=== PATIENT | male | born 1985 | race Caucasian/White ===

== ENCOUNTER 2020-05-13 14:09 | Outpatient (REF) | payer OTHER, SELFPAY | END 2020-05-13 14:10 | disposition home or self-care (01) | LOC: HO.LNP 14:09 | PROVIDERS: Visit Provider Nurse Practitioner Family | DX: Z20.828 Contact with and (suspected) exposure to other viral communicable diseases (principal) | CPT/HCPCS: U0003 ==

== ENCOUNTER 2020-08-04 11:39 | Outpatient (REF) | payer OTHER, SELFPAY | END 2020-08-04 11:40 | disposition home or self-care (01) | LOC: HO.LAB 11:39 | PROVIDERS: Visit Provider Nurse Practitioner Family | DX: L02.91 Cutaneous abscess, unspecified (principal) | CPT/HCPCS: 87071; 87205 ==

== ENCOUNTER 2021-04-07 18:39 | Outpatient (REF) | payer OTHER, SELFPAY | END 2021-04-07 18:40 | disposition home or self-care (01) | LOC: HO.LNP 18:39 | PROVIDERS: Visit Provider Nurse Practitioner Family | DX: Z20.822 Contact with and (suspected) exposure to COVID-19 (principal) | CPT/HCPCS: U0003; U0005 ==

== ENCOUNTER 2021-06-08 10:00 | Outpatient (REF) | payer OTHER, SELFPAY | END 2021-06-08 10:01 | disposition home or self-care (01) | LOC: HO.HMGCLDS 10:00 | PROVIDERS: PCP Nurse Practitioner Family; Visit Provider Internal Medicine | DX: Z20.822 Contact with and (suspected) exposure to COVID-19 (principal) | CPT/HCPCS: C9803; U0003; U0005 ==

== ENCOUNTER 2023-02-20 10:39 | Outpatient (AMB) | payer OTHER, SELFPAY ==
[2023-02-20 12:55] VITALS: BP 102/64; PULSE 50; TEMP 36.2; O2SAT 98; BMI 22.6
--- NOTE | 2023-02-20 12:55 | AM.OFFWIN_ITS ---
Intake Vital Signs 02/20/23 12:55 Height 6 ft Weight 167 lb BMI 22.6 BP 102/64 Blood Pressure Location Lt brachial Position Sitting Pulse 50 Pulse Source Pulse Oximeter Temp 97.2 F Temp Source Temporal Artery Scan Pulse Oximetry (%) 98 Oxygen Delivery Method Room Air Intake Visit Reasons: EP, Right eye scratched cornea Intake Note: Pt is here c/o having a scratch in his right eye since yesterday. Patient Tobacco Use Status: Current everyday Tobacco user Allergies Cephalosporins [CEPHALOSPORINS] Allergy (Unknown, Verified 02/20/23 13:11) ANAPHYLACTIC REACTION Penicillins [PENICILLINS] Allergy (Unknown, Verified 02/20/23 13:11) ANAPHYLAXIS bupropion [From Wellbutrin SR] Adverse Reaction (Severe, Verified 02/20/23 13:11) Agitated Cephalosporin Allergy (Unknown, Uncoded 02/20/23 13:11) Anaphylaxis Penicillin Allergy (Unknown, Uncoded 02/20/23 13:11) Anaphylaxis Medication List - Last Reconciled 02/20/23 by Luis Daniel Lema MD No Known Home Meds Do you need a note to return to daycare/school/sports/work: Yes HPI EP, Right eye scratched cornea HPI Details 37-year-old male presents to the office for a sick visit. Patient while removing his contact lens yesterday felt irritation in the right eye. The eye has been red and teary since. [facility] Family History Other Substance use disorder Social History [facility]: [facility] Patient Tobacco Use Status: Current everyday Tobacco user Tobacco use type: Cigarette Cigarette Packs Per Day: 1 Years Smoked: 15 years e-Cigarette/Vaping Use: Never Used Second Hand Smoke Exposure: No Current occupational status: employed Physical Exam Vital Signs: Last Vital Signs Temp 97.2 F 02/20/23 12:55 Pulse 50 02/20/23 12:55 BP 102/64 02/20/23 12:55 Pulse Ox 98 02/20/23 12:55 Oxygen Delivery Method Room Air 02/20/23 12:55 BMI result Body Mass Index 22.6 Eyes Other: Right eye: Conjunctival congestion. Corneas clear. Anterior chambers clear. No fluoro uptake. Assessment & Plan Assessment & Plan (1) Corneal abrasion due to contact lens: Code(s): H18.829 - Corneal disorder due to contact lens, unspecified eye Plan: Erythromycin ophthalmic ointment prescribed. To take the medication twice a day. If symptoms do not improve to follow-up here. Coding Level of Care Code Est Pt Level 3 (23734) Diagnoses Corneal abrasion due to contact lens H18.829
== END 2023-02-20 13:02 | disposition home or self-care (01) ==
PROVIDERS: PCP Nurse Practitioner Family; Visit Provider Internal Medicine
DX: H18.829 Corneal disorder due to contact lens, unspecified eye (principal)
CPT/HCPCS: 99213

== ENCOUNTER 2023-04-04 08:03 | Outpatient (AMB) | payer OTHER, SELFPAY ==
[2023-04-04 08:04] VITALS: BP 122/68; PULSE 67; TEMP 36.6; O2SAT 98; BMI 22.6
--- NOTE | 2023-04-04 08:04 | MHC.OFFWIV ---
Intake Vital Signs 04/04/23 08:04 Height 6 ft Weight 75.75 kg BMI 22.6 BP 122/68 Blood Pressure Location Rt brachial Position Sitting Pulse 67 Pulse Source Pulse Oximeter Temp 97.8 F Temp Source Temporal Artery Scan Pulse Oximetry (%) 98 Intake Visit Reasons: EP Back pain Intake Note: pt is here for WC back injury Patient Tobacco Use Status: Current everyday Tobacco user Allergies Cephalosporins [CEPHALOSPORINS] Allergy (Unknown, Verified 04/04/23 08:04) ANAPHYLACTIC REACTION Penicillins [PENICILLINS] Allergy (Unknown, Verified 04/04/23 08:04) ANAPHYLAXIS bupropion [From Wellbutrin SR] Adverse Reaction (Severe, Verified 04/04/23 08:04) Agitated Cephalosporin Allergy (Unknown, Uncoded 02/20/23 13:11) Anaphylaxis Penicillin Allergy (Unknown, Uncoded 02/20/23 13:11) Anaphylaxis Do you need a note to return to daycare/school/sports/work: Yes HPI HPI Comments History of Present Illness Details 0808 This is a 29-year-old male presenting to the clinic for complaints of work related injury, of mid back pain s/p heavy lifting ( 20 lbs box of books) yesterday, worse with movement better at rest. Reports he has had pain like this in the past but it usually goes away after sleeping. Works at a factory. Denies numbness, tingling, fevers, chills, headache vision changes, dizziness, weakness, chest pain and shortness of breath. PE w/ TTP to L4-L6 paraspinous muscles b/l w/ some discomfort over the midline. Reports pain w/ internal and external rotation of back. Normal hand crusher wet ground mica b/l. Ambulatory w/o difficlty. Non toxic apearing History and physical exam supporting musculoskeletal cause such as msk pain, paraspinous muscle spasms versus herniated disc. Unlikely cord compression, cauda equina, epidural abscess, myelopathy Plan at this time naproxen, prednisone, Lidoderm patch, cyclobenzaprine. Advised to follow up with Work connection. Educated patient on diagnosis and treatment plan, answered all question, patient verbalizes understanding. At this time patient will be discharged home, advised to return with new or worsening symptoms. Educated on worrisome signs and symptoms and when to return. At this time I feel comfortable discharge home. [facility] Family History Other Substance use disorder Social History Housing: [facility] Patient Tobacco Use Status: Current everyday Tobacco user Tobacco use type: Cigarette Cigarette Packs Per Day: 1 Years Smoked: 15 years e-Cigarette/Vaping Use: Never Used Second Hand Smoke Exposure: No Current occupational status: employed Review of Systems Const Details: Constitutional : No Weight loss, No Fever, No Chills, ENT/Mouth : No Hearing loss, No Ear Pain, No Nasal Congestion, No Sinus Pain, No Hoarseness, No sore throat, No Rhinorrhea, No Swallowing Difficulty Cardiovascular : No Chest Pain, No SOB Respiratory : No Cough, No Dyspnea Gastrointestinal : No Nausea, No Vomiting, No Diarrhea, No abdominal Pain, No Hematochezia, No Melena Genitourinary : No Dysuria, No Urinary Frequency, No Hematuria, No Urinary Incontinence, Musculoskeletal : positive back pain Skin : No Skin Lesions, No rash Neuro : No Weakness, No Numbness, No Paresthesias, no loss of bowel or bladder incontinence, no saddle anesthesia All systems reviewed & are unremarkable except as noted in HPI and below Physical Exam Vital Signs: Last Vital Signs Temp 97.8 F 04/04/23 08:04 Pulse 67 04/04/23 08:04 BP 122/68 04/04/23 08:04 Pulse Ox 98 04/04/23 08:04 BMI result Body Mass Index 22.6 Vital signs stable Appearance: Alert.? Oriented X3.? No acute distress.? Head: Normocephalic, atraumatic, no step-offs or deformities Eyes: Pupils equal, round and reactive to light.? CVS: Normal heart rate and rhythm.? Pulses normal.? Respiratory: No respiratory distress.? Breath sounds normal.? Abdomen: Soft and nontender.? Skin: Skin warm and dry.? Normal skin color.? Normal skin turgor.? Extremities: No lower extremity edema.? No calf ttp. 5/5 strength to bilateral upper and lower extremities Back: TTP to L4-L6 paraspinous muscles b/l w/ some discomfort over the midline. Reports pain w/ internal and external rotation of back. Normal hand crusher wet ground mica b/l. Ambulatory w/o difficlty. Non toxic apearing , no C-spine tenderness, full range of motion, no CVA tenderness bilaterally Neuro: Oriented X 3.? No motor deficit.? No sensory deficit. CN 2-12 intact . Ambulating with steady gait normal coordination. No saddle paresthesias. Assessment & Plan Assessment & Plan (1) Spasm of thoracic back muscle: Code(s): M62.830 - Muscle spasm of back Plan Take your medications as prescribed. If you were prescribed antibiotics today, it is important that you take your medication to their entirety, do not skip any doses, do not finish them early. Follow-up with your primary care provider this week. Follow-up with the were connection Return to the emergency department with new or worsening symptoms. Such as fevers, chills, chest pain, shortness of breath, nausea, vomiting, dizziness, headache, vision changes, lethargy In case of emergency call 911 Medications: New prednisone 20 mg PO DAILY 5 days 5 tabs 0RF cyclobenzaprine 10 mg PO BEDTIME PRN 14 tabs 0RF muscle spasm lidocaine 4% (AsperFlex (lidocaine)) 1 patch topical DAILY PRN 15 ea 0RF pain naproxen 500 mg PO BID PRN 14 tabs 0RF pain Coding Level of Care Code Est Pt Level 3 (08542) Diagnoses Spasm of thoracic back muscle M62.830
== END 2023-04-04 08:43 | disposition home or self-care (01) ==
PROVIDERS: PCP Nurse Practitioner Family; Visit Provider Physician Assistant
DX: M62.830 Muscle spasm of back (principal)
CPT/HCPCS: 99213

== ENCOUNTER 2023-06-05 08:08 | Outpatient (AMB) | payer OTHER, SELFPAY ==
[2023-06-05 08:31] VITALS: BP 102/64; PULSE 76; TEMP 36.6; O2SAT 98; BMI 22.6
--- NOTE | 2023-06-05 08:31 | AM.OFFWIN_ITS ---
Intake Vital Signs 06/05/23 08:31 Height 6 ft Weight 167 lb BMI 22.6 BP 102/64 Blood Pressure Location Lt brachial Position Sitting Pulse 76 Pulse Source Pulse Oximeter Temp 97.8 F Temp Source Temporal Artery Scan Pulse Oximetry (%) 98 Intake Visit Reasons: EST/right side lefg pain (lobby) Intake Note: pt is here for c/o right side leg pain, left side thigh numbness Patient Tobacco Use Status: Current everyday Tobacco user Allergies Cephalosporins [CEPHALOSPORINS] Allergy (Unknown, Verified 06/05/23 08:32) ANAPHYLACTIC REACTION Penicillins [PENICILLINS] Allergy (Unknown, Verified 06/05/23 08:32) ANAPHYLAXIS bupropion [From Wellbutrin SR] Adverse Reaction (Severe, Verified 06/05/23 08:32) Agitated Cephalosporin Allergy (Unknown, Uncoded 02/20/23 13:11) Anaphylaxis Penicillin Allergy (Unknown, Uncoded 02/20/23 13:11) Anaphylaxis Do you need a note to return to daycare/school/sports/work: Yes HPI EST/right side lefg pain (lobby) HPI Details Patient presents to the office for a sick visit. Complaining of lower back pain for the past week. No history of fall or trauma prior to the onset of symptoms. No urinary incontinence. No fevers or chills. Pain is worse on bending forwards or sideways. Relieve done sitting down. Pain is radiating into the gluteal area. [facility] Family History Other Substance use disorder Housing: Condominium Patient Tobacco Use Status: Current everyday Tobacco user Tobacco use type: Cigarette Cigarette Packs Per Day: 1 Years Smoked: 15 years e-Cigarette/Vaping Use: Never Used Second Hand Smoke Exposure: No Current occupational status: employed Physical Exam Vital Signs: Last Vital Signs Temp 97.8 F 06/05/23 08:31 Pulse 76 06/05/23 08:31 BP 102/64 06/05/23 08:31 Pulse Ox 98 06/05/23 08:31 BMI result Body Mass Index 22.6 Extrem Other: Right hip: Pain on raising the right leg. Internal and external rotation is painful. Assessment & Plan Assessment & Plan (1) Right hip pain: Code(s): M25.551 - Pain in right hip Plan: Muscular in etiology. X-rays have been ordered. No x-rays are available today. Patient was advised to go to the hospital or come back later in the afternoon to get the x-ray done. Muscle relaxant and anti-inflammatory called in. Orders: Orders XR hip RT w PEL1V Today M25.551 - Pain in right hip Coding Level of Care Code Est Pt Level 4 (45174) Diagnoses Right hip pain M25.551
== END 2023-06-05 09:14 | disposition home or self-care (01) ==
PROVIDERS: PCP Nurse Practitioner Family; Visit Provider Internal Medicine
DX: M25.551 Pain in right hip (principal)
CPT/HCPCS: 99214

== ENCOUNTER 2023-06-05 10:56 | Outpatient (REF) | payer OTHER, SELFPAY ==
--- NOTE | ~2023-06-05 | XR_ITS ---
EXAMINATION: XR HIP, RIGHT CLINICAL INFORMATION: Pain in right hip. COMPARISON: None available. TECHNIQUE: AP view of the pelvis as well as AP and frog lateral views of the right hip. FINDINGS: Degenerative changes with sclerosis in the bilateral sacroiliac joints, right greater than left. Possible transitional anatomy difficult to characterize due to overlying bowel. Multiple rounded pelvic calcifications are likely vascular. Mild degenerative changes in the right hip with joint space narrowing and hypertrophic change. XR/XR hip RT w PEL1V IMPRESSION: 1. Abnormality along the intertrochanteric region of the right femur is of indeterminate age and etiology. Recommend additional imaging with CT scan for further evaluation, particularly if there is concern for fracture or underlying pathology. 2. Mild degenerative changes in the right hip. Additional imaging with CT scan should be considered for better visualization as CT scan is much more sensitive for detection of fracture or other underlying pathology. 3. Asymmetric advanced degenerative changes in the right sacroiliac joint could be further evaluated with dedicated images. This study was presented today June 05, 2023 at 12:58 PM for interpretation. Stat results provided at this time as requested by referring provider.
== END 2023-06-05 10:57 | disposition home or self-care (01) ==
LOC: HO.HMGCX 10:56
PROVIDERS: PCP Nurse Practitioner Family; Visit Provider Internal Medicine
DX: M25.551 Pain in right hip (principal)
CPT/HCPCS: 73502

== ENCOUNTER 2023-07-19 08:32 | Outpatient (AMB) | payer OTHER, SELFPAY ==
--- NOTE | 2023-07-19 09:09 | MHC.OFFWIV ---
Intake Vital Signs 07/19/23 09:10 Height 6 ft Weight 168 lb BMI 22.8 BP 110/60 Blood Pressure Location Rt brachial Position Sitting Pulse 66 Pulse Source Pulse Oximeter Temp 97.9 F Temp Source Temporal Artery Scan Pulse Oximetry (%) 96 Oxygen Delivery Method Room Air Intake Visit Reasons: EST/left knee pain (lobby masked) Intake Note: Pt is here c/o left knee pain. Pt states his three year dove head first into his knee cap and he now has discomfort. Patient Tobacco Use Status: Current everyday Tobacco user Allergies Cephalosporins [CEPHALOSPORINS] Allergy (Unknown, Verified 07/19/23 09:12) ANAPHYLACTIC REACTION Penicillins [PENICILLINS] Allergy (Unknown, Verified 07/19/23 09:12) ANAPHYLAXIS bupropion [From Wellbutrin SR] Adverse Reaction (Severe, Verified 07/19/23 09:12) Agitated Cephalosporin Allergy (Unknown, Uncoded 07/19/23 09:12) Anaphylaxis Penicillin Allergy (Unknown, Uncoded 07/19/23 09:12) Anaphylaxis Do you need a note to return to daycare/school/sports/work: Yes HPI HPI Comments History of Present Illness Details He presents to office with L knee pain Last night his 3 year old ran into his L knee He has pain wih movement/walking Feels sharp pain below kneecap No surgeries in past He took nothing He said knees pain sitting is 0/10 but walking 7/10 sharp No giving out PFSH Family History Other Substance use disorder Social History Housing: Condominium Patient Tobacco Use Status: Current everyday Tobacco user Tobacco use type: Cigarette Cigarette Packs Per Day: 1 Years Smoked: 15 years e-Cigarette/Vaping Use: Never Used Second Hand Smoke Exposure: No Current occupational status: employed Review of Systems Musc Reports abnormal gait, Denies deformity, Reports arthralgias, Reports joint swelling, Denies numbness, Denies radiating pain into limb, Reports stiffness and Denies tingling Neuro Reports abnormal gait, Denies numbness and Denies tingling Physical Exam Vital Signs: Last Vital Signs Temp 97.9 F 07/19/23 09:10 Pulse 66 07/19/23 09:10 BP 110/60 07/19/23 09:10 Pulse Ox 96 07/19/23 09:10 Oxygen Delivery Method Room Air 07/19/23 09:10 BMI result Body Mass Index 22.8 General: Non-toxic, NAD. Speaking full sentences. Skin: Warm dry throughout. Slight edema L knee medial aspect inferior to patella Eye: EOMI Resp: No respiratory distress or tachypnea Cardiac: No LLE calf pain with palpation MSK: + tenderness to palpation medial aspect L knee; mostly inferior to patella. No patella tenderness. + full ROM L knee. No lateral knee tenderness to palpation.No tenderness to palpation L ankle or distal tib/fib. 5/5 strength dorsal flexion of foot. Neurology: A/O No aphasia or facial droop. Psych: Good mood and affect Assessment & Plan Assessment & Plan (1) Knee pain: Code(s): M25.569 - Pain in unspecified knee Qualifiers: Chronicity: acute Laterality: left Qualified Code(s): M25.562 - Pain in left knee Plan: Patient seen and evaluated. Xray L knee: i viewed as negative Rest ice, elevate Ortho follow up Patient gave verbal understanding and had no additional questions or concerns at time of discharge All questions answered Orders: Orders XR knee LT 3V Today M25.569 - Pain in unspecified knee Referrals Orthopedics Referral M25.569 - Pain in unspecified knee Coding Level of Care Code Est Pt Level 3 (81215) Diagnoses Acute pain of left knee M25.562 Chronicity: acute Laterality: left
[2023-07-19 09:10] VITALS: BP 110/60; PULSE 66; TEMP 36.6; O2SAT 96; BMI 22.8
== END 2023-07-19 12:38 | disposition home or self-care (01) ==
PROVIDERS: PCP Nurse Practitioner Family; Visit Provider Physician Assistant
DX: M25.562 Pain in left knee (principal)
CPT/HCPCS: 99213

== ENCOUNTER 2023-07-19 09:32 | Outpatient (REF) | payer OTHER, SELFPAY ==
--- NOTE | ~2023-07-19 | XR_ITS ---
EXAMINATION: XR KNEE, LEFT CLINICAL INFORMATION: Pain COMPARISON: None available. TECHNIQUE: Three views of the left knee. FINDINGS: Bones have normal alignment. No fracture, subluxation or joint effusion. Or focal soft tissue swelling. Negligible osteophyte formation at the upper pole of the patella. Articular surfaces have normal smooth contour. No intra-articular osteochondral body. XR/XR knee LT 3V IMPRESSION: There is negligible osteophyte formation at the upper pole of the patella. No significant degenerative changes at the left knee.
== END 2023-07-19 09:33 | disposition home or self-care (01) ==
LOC: HO.HMGCX 09:32
PROVIDERS: PCP Nurse Practitioner Family; Visit Provider Physician Assistant
DX: M25.562 Pain in left knee (principal)
CPT/HCPCS: 73562

== ENCOUNTER 2023-10-20 22:37 | Emergency (ER) | payer OTHER, SELFPAY ==
[2023-10-20 23:11] VITALS: BP 150/91; PULSE 67; RESP 16; TEMP 36.6; O2SAT 98; BMI 23.0
[2023-10-21 00:09] VITALS: BP 129/78; PULSE 55; RESP 16; TEMP 36.8; O2SAT 99
--- NOTE | 2023-10-21 00:21 | ED.GENADULT ---
HPI - General Adult General Chief complaint: Eye Problems Stated complaint: R eye sty Time Seen by Provider: 10/21/23 00:14 Source: patient, RN notes reviewed and old records reviewed Mode of arrival: ambulatory Limitations: no limitations History of Present Illness HPI narrative: 38-year-old male presents for evaluation of right upper eyelid swelling Patient reports that a couple of days ago he slept with his contacts in. He states that he noticed some itching and discomfort to the area the following day Yesterday he noticed pain, swelling and redness to the upper eyelid Denies any drainage from the eye or discharge Denies any trauma to the eye Patient reports he is leftover erythromycin ointment at home from his kids having pink eye and he used it 3 times today without any improvement Related Data Allergies Allergy/AdvReac Type Severity Reaction Status Date / Time Cephalosporins Allergy Unknown ANAPHYLACTIC Verified 10/20/23 23:11 [CEPHALOSPORINS] REACTION Penicillins [PENICILLINS] Allergy Unknown ANAPHYLAXIS Verified 10/20/23 23:11 bupropion AdvReac Severe Agitated Verified 10/20/23 23:11 [From Wellbutrin SR] Cephalosporin Allergy Unknown Anaphylaxis Uncoded 07/19/23 09:12 Penicillin Allergy Unknown Anaphylaxis Uncoded 07/19/23 09:12 Review of Systems Constitutional: Constitutional: Denies body ache(s), Denies chills and Denies fever(s) Eyes: Eyes: Denies blurry vision, Denies exophthalmos, Denies change in vision and Denies eye discharge Comments: Right upper eyelid swelling PMFSH Family History Family History Other Substance use disorder Social History Social History [facility] Patient Tobacco Use Status: Current everyday Tobacco user Tobacco use type: Cigarette Cigarette Packs Per Day: 1 Years Smoked: 15 years e-Cigarette/Vaping Use: Never Used Second Hand Smoke Exposure: No Advance Directives: No Advance Directives Information Provided: Yes Advance Directives on File: No Current occupational status: employed Physical Exam ED Vital Signs: Vital Signs - 24 hr 10/20/23 23:11 10/21/23 00:09 10/21/23 00:29 Temperature 97.9 F 98.3 F 98.3 F Pulse Rate 67 55 55 Respiratory Rate 16 16 16 Blood Pressure 150/91 H 129/78 129/78 Pulse Oximetry 98 99 99 Oxygen Delivery Method Room Air Room Air Room Air BMI result Body Mass Index 23.0 Const General: healthy appearing, comfortable, no acute distress, alert and awake Nutritional Appearance: well nourished Orientation/consciousness: patient oriented x3 HENMT Head: Yes normocephalic and Yes atraumatic Eyes Other: Patient has mild right upper eyelid erythema/edema. No drainage. No wounds. Conjunctivae: conjunctivae normal Sclerae: sclerae normal Corneas: corneas normal Pupils: Equal, round and reactive pupils present EOM: EOMs intact bilaterally Neck Neck: Yes full ROM Resp Effort & Inspection: normal respiratory effort, able to speak in complete sentences and not labored GI Inspection: No distended Palpation (GI): Soft to palpation, not firm, nontender, no guarding and not rigid Neuro General: patient oriented x3 Cranial nerves: Yes Equal, round and reactive pupils present and Yes Bilaterally intact EOM present Cognition (Neuro): normal cognition Extrem Other: Moving all extremities well without any obvious deformities Medical Decision Making Medical Decision Making MDM Narrative: 38-year-old male presents for evaluation of right upper eyelid swelling. He appears to have a stye/hordeolum. There is no evidence of periorbital cellulitis or preseptal cellulitis. No evidence of conjunctivitis. The patient will be discharged with instructions to use warm compresses to treat the stye and follow-up with his eye doctor Differential Diagnosis Differential Diagnoses: The differential diagnosis associated with the presentation includes stye Hordeolum Blepharitis Conjunctivitis Discharge Plan Discharge Clinical Impression: Hordeolum externum of right upper eyelid Patient Disposition: Home, Self-Care Instructions: Filomena (ED) Additional Instructions: Apply warm compresses to the upper eyelid for 5 minutes every 2 hours for the next 2 days. You should begin to see improvement within 2 days I recommend continuing warm compresses for at least 5 days You may continue to use erythromycin ointment up to 3 times a day Do not use this for more than 5 days Follow-up with your primary doctor and or your eye doctor Return for new or worsening symptoms Interventions: ED Discharge Assessment Last Done: 10/21/23 00:29 Discharge Date/Time: 10/21/23 00:49 Print Language: Azeri
[2023-10-21 00:29] VITALS: BP 129/78; PULSE 55; RESP 16; TEMP 36.8; O2SAT 99
== END 2023-10-21 00:49 | disposition home or self-care (01) ==
PROVIDERS: Emergency Provider Emergency Medicine; PCP Nurse Practitioner Family
DX: H00.011 Hordeolum externum right upper eyelid (principal); F17.210 Nicotine dependence, cigarettes, uncomplicated
CPT/HCPCS: 99282; 99283

== ENCOUNTER 2023-10-22 15:02 | Emergency (ER) | payer OTHER, SELFPAY ==
[2023-10-22 15:25] VITALS: BP 125/88; PULSE 64; RESP 16; TEMP 36.9; O2SAT 98; BMI 23.1
--- NOTE | 2023-10-22 15:26 | ED.EYEPROB ---
HPI - Eye Problem General Chief complaint: Eye Problems Stated complaint: right eye swelling get worse seen here 10/19 Time Seen by Provider: 10/22/23 15:31 Source: patient Mode of arrival: ambulatory Limitations: no limitations History of Present Illness HPI Narrative: Patient is a 38-year-old male who presents emergency department for evaluation of right eye. seen in ED 10/20/23, diagnosed with hordeolum, using erythromycin ointment (prescribed to his child) in addition to warm compresses and despite this feels like things are worsening. Pain and swelling is extending to the lower aspect of the eye. Denies pain with movement of the eye. Denies fevers. Denies chills. Related Data Previous Rx's ?Medication ?Instructions ?Recorded levofloxacin 500 mg tablet 500 mg PO DAILY #5 tabs 10/22/23 Allergies Allergy/AdvReac Type Severity Reaction Status Date / Time Cephalosporins Allergy Unknown ANAPHYLACTIC Verified 10/22/23 15:26 [CEPHALOSPORINS] REACTION Penicillins [PENICILLINS] Allergy Unknown ANAPHYLAXIS Verified 10/22/23 15:26 bupropion AdvReac Severe Agitated Verified 10/22/23 15:26 [From Wellbutrin SR] Cephalosporin Allergy Unknown Anaphylaxis Uncoded 10/22/23 15:26 Penicillin Allergy Unknown Anaphylaxis Uncoded 10/22/23 15:26 Review of Systems Review of Systems: Yes all other systems are reviewed and are negative [facility] Past Medical History Attestation statement: The following information was validated with the patient. Source: old records reviewed Family History Family History Other Substance use disorder Social History Social History Housing: [facility] Patient Tobacco Use Status: Current everyday Tobacco user Tobacco use type: Cigarette Cigarette Packs Per Day: 1 Years Smoked: 15 years e-Cigarette/Vaping Use: Never Used Second Hand Smoke Exposure: No Current occupational status: employed Physical Exam Vital Signs: Appearance: Alert.?Oriented to person, place and time. No acute distress.?Normal affect. Eyes: Pupils equal, round and reactive to light.? EOMI. No nystagmus. Hordeolum on the lateral aspect of the right upper lid with mild surrounding erythema and warmth ENT: Pharynx normal.??TM normal bilaterally Neck: Normal inspection.? Neck supple.?? CVS: Heart sounds normal. Normal heart rate and rhythm.? Pulses normal.?? Respiratory: No respiratory distress.? Lung sounds clear to auscultation bilaterally?? Skin: Skin warm and dry.? Normal skin color.? Extremities: No lower extremity edema.? ? Neuro: Moves all extremities spontaneously. Sensation intact bilaterally. CN II-XII intact. No focal neuro deficits. Ambulates with normal steady gait. Course Course Course Narrative: Patient is a 38-year-old male who presents emergency department for evaluation of right eye. seen in ED 10/20/23, diagnosed with hordeolum, using erythromycin ointment (prescribed to his child) in addition to warm compresses and despite this feels like things are worsening. Pain and swelling is extending to the lower aspect of the eye Medical Decision Making Medical Decision Making MDM Narrative: Patient is a 38-year-old male who presents emergency department for evaluation of a reported stye to his right eye with onset 1 week ago despite conservative treatment at home has progressed. Has notable hordeolum to the right upper lateral lid, and exam concerning for early preseptal cellulitis. EOMI without pain, no proptosis, no diplopia, no vision impairment, no ecchymosis, no fever, clinically have low suspicion for orbital cellulitis, would defer CT imaging for evaluation of such. Given history of anaphylaxis with penicillin and cephalosporins will treat with Levaquin. Discussed strict return precautions, worrisome signs and symptoms that would warrant re-evaluation. Stable for discharge home. Differential Diagnosis Differential Diagnoses: The differential diagnosis associated with the presentation includes (As noted above) Admission/Observation Consideration of admission/observation: Escalation of care including admission/observation considered External Record Review External record reviewed: Outpatient record Tests considered The following testing was considered but not selected: See narrative above, CT/serum labs deferred Prescription Management I considered prescription management with: Antibiotic Discharge Plan Discharge Clinical Impression: Preseptal cellulitis of right eye Patient Disposition: Home, Self-Care Instructions: Periorbital Cellulitis in Adults (ED) Additional Instructions: Continue with warm moist compresses as you have been doing. Complete the entire course of antibiotics as prescribed. Contact your primary care provider to arrange for a follow-up visit. Return back to emergency department any new or worsening symptoms or concerns. Prescriptions: New levofloxacin 500 mg tablet 500 mg PO DAILY Qty: 5 0RF Referrals: Stefano Jewell FNP-BC [Primary Care Provider] - Print Language: Estonian
[2023-10-22 15:43] VITALS: BP 125/88; PULSE 64; RESP 16; TEMP 36.9; O2SAT 98
== END 2023-10-22 15:44 | disposition home or self-care (01) ==
PROVIDERS: Emergency Provider Student in an Organized Health Care Education/Training Program; PCP Nurse Practitioner Family
DX: L03.213 Periorbital cellulitis (principal); H00.011 Hordeolum externum right upper eyelid; Z88.0 Allergy status to penicillin; Z88.8 Allergy status to other drugs, medicaments and biological substances
CPT/HCPCS: 99282; 99283

== ENCOUNTER 2024-01-22 12:23 | Outpatient (AMB) | payer OTHER, SELFPAY ==
--- NOTE | 2024-01-22 12:33 | MHC.PC.OV ---
Vital Signs 01/22/24 12:34 Height 6 ft Weight 156 lb BMI 21.2 BP 114/74 Blood Pressure Location Rt brachial Position Sitting Pulse 60 Pulse Source Pulse Oximeter Pulse Oximetry (%) 98 Oxygen Delivery Method Room Air Intake Visit Reasons: PE- NEEDS PHQ9+THRIVE Intake Note: Patient here for physical exam. pt would like to talk about possible umbilical hernia. Allergies Cephalosporins [CEPHALOSPORINS] Allergy (Unknown, Verified 01/22/24 12:43) ANAPHYLACTIC REACTION Penicillins [PENICILLINS] Allergy (Unknown, Verified 01/22/24 12:43) ANAPHYLAXIS bupropion [From Wellbutrin SR] Adverse Reaction (Severe, Verified 01/22/24 12:43) Agitated Cephalosporin Allergy (Unknown, Uncoded 01/22/24 12:43) Anaphylaxis Penicillin Allergy (Unknown, Uncoded 01/22/24 12:43) Anaphylaxis Medication List - Last Reconciled 01/22/24 by JESUS ALBERTO Aguilar No Known Home Meds Tobacco use date assessed: 01/22/24 Dental Screening Dental Screen Date: 01/22/24 Did you have a dental visit in the last 12 months?: No Did you have a dental problem in the last 6 months where you did not have access to dental care?: No Was dental information given to patient?: No HPI PE- NEEDS PHQ9+THRIVE HPI Details pt is here for a PE. Smoker, reports wanting to try the patch. Sent with nicotine gum. Pt educated on use [facility] Medical History (Updated 01/22/24 @ 12:54 by JESUS ALBERTO Aguilar) Alcohol intoxication Family History Other Substance use disorder Social History Housing: Condominium Patient Tobacco Use Status: Current everyday Tobacco user Tobacco use type: Cigarette Cigarette Packs Per Day: 1 Years Smoked: 15 years e-Cigarette/Vaping Use: Never Used Second Hand Smoke Exposure: No Current occupational status: employed Cognitive needs: No Hearing needs: No Vision needs: No Questionnaire PHQ-9 Over the last 2 weeks, how often have you been bothered by any of the following problems? 1. Little interest or pleasure in doing things: not at all 2. Feeling down, depressed, or hopeless: not at all 3. Trouble falling or staying asleep, or sleeping too much: not at all 4. Feeling tired or having little energy: nearly every day 5. Poor appetite or overeating: not at all 6. Feeling bad about yourself - or that you are a failure or have let yourself or your family down: not at all 7. Trouble concentrating on things, such as reading the newspaper or watching television: nearly every day 8. Moving or speaking so slowly that other people could have noticed. Or the opposite - being so fidgety or restless that you have been moving around a lot more than usual: several days 9. Thoughts that you would be better off or of hurting yourself in some way: not at all Total score: 7 Depression Screening Interpretation: Negative Depression Screening Done: Yes 30352 - PHQ-9 Billing: Yes Source: Developed by Drs. Ky Rowe, Laurie Aranda, Jean-Claude Hernandes and colleagues, with an educational cornelius from [employer]. Thrive Questionnaire Date Thrive assessed: 01/22/24 I am a: Patient What is your living situation today?: I have a steady place to live Within the past 12 months, did the food you bought not last and you didn't have the money to get more?: Never true Within the past 12 months, did you worry whether your food would run out before you got money to buy more?: Never true Do you have trouble paying for medicines?: No Do you have trouble getting transportation to medical appointments?: No Do you have trouble paying your heating and electricity bill?: No Do you have trouble taking care of your child, family member or friend?: No Do you have trouble with day-to-day activities such as bathing, preparing meals, shopping, managing finances, etc.?: Yes Are you currently unemployed and looking for a job?: No Are you interested in more education?: No Please select the resources that you would like help with: Housing/Custodial Currently or been in a relationship where the following occur: No concerns reported THRIVE Score: 0 AUDIT C Alcohol Use Questionnaire (AUDIT-C) 3. How often do you have six or more drinks on one occasion?: Less than monthly Total Score: 1 FRANCESCA-7 AMB Questionnaire FRANCESCA-7 Date FRANCESCA - 7 assessed: 01/22/24 Feeling nervous, anxious, or on edge: 1 = Several days Not being able to stop or control worryin = Not at all Worrying too much about different things: 1 = Several days Trouble relaxin = Not at all Being so restless that it is hard to sit still: 1 = Several days Becoming easily annoyed or irritable: 0 = Not at all Feeling afraid as if something awful might happen: 0 = Not at all Total FRANCESCA-7 score (0-4 normal; 5-9 mild; 10-14 moderate; 15-21 severe): 3 Source: Developed by Drs. Ky Rowe, Laurie Aranda, Jean-Claude Hernandes and colleagues, with an educational cornelius from [employer]. FRANCESCA-7 Assessment Billing FRANCESCA-7 Assessment Tool: FRANCESCA-7 Assessment 75544 Review of Systems Const Denies chills and Denies fever(s) Eyes Denies blurry vision ENT Denies vertigo, Denies dizziness and Denies sore throat Card Denies chest pain at rest, Denies chest pain with activity, Denies diaphoresis, Denies dyspnea and Denies dyspnea on exertion Resp Denies cough, Denies dyspnea, Denies dyspnea on exertion and Denies wheezing GI Denies abdominal pain, Denies melena, Denies hematochezia, Denies constipation, Denies diarrhea and Denies loose stools Denies hematuria Musc Denies numbness and Denies tingling Skin/Breast Denies lesions Neuro Denies vertigo, Denies dizziness, Denies numbness and Denies tingling Psych Denies anxiety, Denies depression, Denies homicidal ideation, Denies suicidal ideation and Denies other (substance abuse) Aller/Immun Denies wheezing Physical exam (Primary Care) Vital Signs: Last Vital Signs Pulse 60 01/22/24 12:34 BP 114/74 01/22/24 12:34 Pulse Ox 98 01/22/24 12:34 Oxygen Delivery Method Room Air 01/22/24 12:34 BMI result Body Mass Index 21.2 Tobacco/Smoking Status: Tobacco use Status Tobacco use date assessed 01/22/24 01/22/24 12:38 Patient Tobacco Use Status Current everyday Tobacco 01/22/24 12:38 Tobacco use type Cigarette 01/22/24 12:38 e-Cigarette/Vaping Use Never Used 01/22/24 12:38 PHQ-9: PHQ-9 Score PHQ-9: Total score 7 01/22/24 12:38 Depression Screening Interpretation: Negative Thrive Assessment: Date of Thrive Assessment Date Thrive assessed 01/22/24 01/22/24 12:38 Currently or been in a relationship where the following occur: No concerns reported Const General: cooperative Nutritional Appearance: well nourished Orientation/consciousness: patient oriented x3 HENMT Head: Yes normal to inspection, Yes normocephalic and Yes atraumatic Ears: TM normal on the right and TM normal on the left Eyes General: appearance normal, both eyes and all related structures Alignment and Position: alignment normal and position normal Neck Neck: Yes normal visual inspection and Yes no lymphadenopathy Resp Effort & Inspection: normal respiratory effort Auscultation: clear to auscultation bilaterally Cardio Rate: regular rate Rhythm: regular rhythm Heart sounds: S1 normal heart sound present, S2 normal heart sound present and no murmurs GI Other: just superior to umbilicus with small hernia Palpation (GI): Soft to palpation and nontender Auscultation: normal bowel sounds Other: dorsal shaft with condyloma Male General Exam: Yes normal external exam Scrotum: scrotum normal, testes descended bilaterally and no inguinal hernias Testes: no testicular mass Skin Rashes: no rashes Neuro General: patient oriented x3, moves all extremities, no focal motor deficits and deep tendon reflexes 2+ bilaterally Romberg Test: Negative Extrem Right lower extremity: no edema Left lower extremity: no edema Psych Affect: normal affect Attitude: cooperative Thought process: Normal thought process present Assessment and Plan Assessment & Plan (1) Physical exam: Code(s): Z00.00 - Encounter for general adult medical examination without abnormal findings (2) Condyloma: Code(s): A63.0 - Anogenital (venereal) warts Plan: referred to urology Orders: Orders Complete Blood Count Auto Diff Today Z00.00 - Encounter for general adult medical examination without abnormal findings TSH reflex Free T4 Today Z00.00 - Encounter for general adult medical examination without abnormal findings Lipid Panel Today Z00.00 - Encounter for general adult medical examination without abnormal findings Comprehensive [place]. Panel Fast Today Z00.00 - Encounter for general adult medical examination without abnormal findings UA CC w/rflx Micro + Cult Today Z00.00 - Encounter for general adult medical examination without abnormal findings Referrals Urology Referral A63.0 - Anogenital (venereal) warts Medications: New nicotine (polacrilex) 2 mg buccal Q2H 100 ea 0RF nicotine 1 patch transdermal DAILY 28 ea 2RF Coding Level of Care Code Est Pt Prev Care 18-39y(76275) Diagnoses Physical exam Z00.00 Condyloma A63.0 Additional Codes FRANCESCA-7 Assessment Billing - FRANCESCA-7 Assessment Tool: FRANCESCA-7 Assessment [id number] ([id number])
[2024-01-22 12:34] VITALS: BP 114/74; PULSE 60; O2SAT 98; BMI 21.2
== END 2024-01-22 13:02 | disposition home or self-care (01) ==
PROVIDERS: PCP Nurse Practitioner Family; Visit Provider Nurse Practitioner Family
DX: Z00.00 Encounter for general adult medical examination without abnormal findings (principal); A63.0 Anogenital (venereal) warts
CPT/HCPCS: 99395

== ENCOUNTER 2024-02-26 08:02 | Outpatient (AMB) | payer OTHER, SELFPAY ==
[2024-02-26 08:07] VITALS: BP 110/60; PULSE 54; TEMP 36.7; O2SAT 99; BMI 21.7
--- NOTE | 2024-02-26 08:07 | AM.OFFWIN_ITS ---
Intake Vital Signs 02/26/24 08:07 Height 6 ft Weight 160 lb BMI 21.7 BP 110/60 Blood Pressure Location Rt brachial Position Sitting Pulse 54 Pulse Source Pulse Oximeter Temp 98.0 F Temp Source Oral Pulse Oximetry (%) 99 Oxygen Delivery Method Room Air Intake Visit Reasons: EP Back Pain Intake Note: Pt is here today c/o mid lower back pain: yesterday standing from a sitting position at home Patient Tobacco Use Status: Current everyday Tobacco user Allergies Cephalosporins [CEPHALOSPORINS] Allergy (Unknown, Verified 02/26/24 08:13) ANAPHYLACTIC REACTION Penicillins [PENICILLINS] Allergy (Unknown, Verified 02/26/24 08:13) ANAPHYLAXIS bupropion [From Wellbutrin SR] Adverse Reaction (Severe, Verified 02/26/24 08:13) Agitated Cephalosporin Allergy (Unknown, Uncoded 02/26/24 08:13) Anaphylaxis Penicillin Allergy (Unknown, Uncoded 02/26/24 08:13) Anaphylaxis HPI HPI Comments History of Present Illness Details Patient is a 38-year-old male who states he is having back pain in his lower back since he bent over to mushroom picker some food off the floor last evening. He said as soon as he stood up he felt immediate pain. He tried to have his massage the area and he took 800 mg of ibuprofen which did not seem to help very much. He denies any loss of control of his bladder or bowels or blood in his urine. [facility] Medical History (Updated 02/26/24 @ 08:32 by Lila Vargas PA-C) Alcohol intoxication Family History Other Substance use disorder Social History Housing: Condominium Patient Tobacco Use Status: Current everyday Tobacco user Tobacco use type: Cigarette Cigarette Packs Per Day: 1 Years Smoked: 15 years e-Cigarette/Vaping Use: Never Used Second Hand Smoke Exposure: No Current occupational status: employed Cognitive needs: No Hearing needs: No Vision needs: No Review of Systems Const All systems reviewed & are unremarkable except as noted in HPI and below Physical Exam Vital Signs: Last Vital Signs Temp 98.0 F 02/26/24 08:07 Pulse 54 02/26/24 08:07 BP 110/60 02/26/24 08:07 Pulse Ox 99 02/26/24 08:07 Oxygen Delivery Method Room Air 02/26/24 08:07 BMI result Body Mass Index 21.7 Const General: cooperative, healthy appearing and comfortable Orientation/consciousness: patient oriented x3 HEENT Head: Yes normal to inspection and Yes normocephalic General nose exam: Normal external nose present Face and sinus: Yes normal facial exam Eyes General: appearance normal, both eyes and all related structures Resp Effort & Inspection: normal respiratory effort and able to speak in complete sentences General: Yes no CVA tenderness Back/Spine/Pelvis Back: no CVA tenderness Cervical Spine: cervical ROM normal and No Cervical spine tenderness Thoracic/Lumbar Spine: thoracic and lumbar spine normal to inspection, pain with thoraco-lumbar ROM, paraspinal muscle tenderness bilaterally in the mid lumbar, No thoracic spinal tenderness and No lumbar spinal tenderness Neuro General: patient oriented x3 Assessment & Plan Assessment & Plan (1) Back pain: Code(s): M54.9 - Dorsalgia, unspecified Qualifiers: Back pain location: low back pain Chronicity: acute Back pain laterality: bilateral Sciatica presence: without sciatica Qualified Code(s): M54.50 - Low back pain, unspecified Plan: Recommended he use a leave around the clock as well as ice and heat and Salonpas or similar patches. Recommended he use muscle relaxers which I will send to his pharmacy but use them sparingly and not while driving a vehicle or drinking alcohol. Also recommended he take some time off of work to rest his back. Plan See above Medications: New cyclobenzaprine 5 mg PO TID PRN 14 tabs 0RF muscle spasm Coding Level of Care Code Est Pt Level 3 (54776) Diagnoses Acute bilateral low back pain without sciatica M54.50 Back pain location: low back pain Chronicity: acute Back pain laterality: bilateral Sciatica presence: without sciatica
== END 2024-02-26 08:27 | disposition home or self-care (01) ==
PROVIDERS: PCP Nurse Practitioner Family; Visit Provider Physician Assistant
DX: M54.50 Low back pain, unspecified (principal)
CPT/HCPCS: 99213

== ENCOUNTER 2024-04-06 17:34 | Emergency (ER) | payer OTHER, SELFPAY ==
--- NOTE | ~2024-04-06 | XR_ITS ---
EXAMINATION: XR FOOT, LEFT CLINICAL INFORMATION: Pain in left foot. No known injury. COMPARISON: None available. TECHNIQUE: AP, lateral, and oblique views of the left foot. FINDINGS: There may be some soft tissue swelling over the plantar aspect of the forefoot underlying the metacarpophalangeal joints. No acute fracture, dislocation, radiopaque foreign body noted. No significant degenerative change seen. No ankle joint effusion. XR/XR foot LT min 3V IMPRESSION: * There is likely mild soft tissue swelling over the plantar aspect of the forefoot. Clinical correlation requested. * No acute fracture or dislocation. Electronically signed by: Donna Philip MD 04/06/2024 06:34 PM EDT RP
[2024-04-06 17:44] VITALS: BP 122/91; PULSE 64; RESP 16; TEMP 36.6; O2SAT 98; BMI 22.4
--- NOTE | 2024-04-06 17:45 | ED_ITS ---
HPI - Extremity Problem General Chief complaint: Extremity Problem Stated complaint: swollen left foot Time Seen by Provider: 04/06/24 22:39 Source: patient Limitations: no limitations History of Present Illness ED Provider: Lisa Kumar PA-C HPI Narrative: 38-year-old male presents with left foot pain times a day and a half. 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 The boots do not fit quite right, he has developed calluses on the plantar aspect of both feet over the ball of the foot. This morning, the left foot became painful, swollen and red. Denies fevers. Related Data Previous Rx's ?Medication ?Instructions ?Recorded nicotine (polacrilex) 2 mg gum 2 mg buccal Q2H #100 ea 01/22/24 cyclobenzaprine 5 mg tablet 5 mg PO TID PRN muscle spasm #14 02/26/24 tabs clindamycin HCl 150 mg capsule 450 mg (3 x 150 mg) PO Q6H #84 caps 04/06/24 Allergies Allergy/AdvReac Type Severity Reaction Status Date / Time Cephalosporins Allergy Unknown ANAPHYLACTIC Verified 04/06/24 17:45 [CEPHALOSPORINS] REACTION Penicillins [PENICILLINS] Allergy Unknown ANAPHYLAXIS Verified 04/06/24 17:45 bupropion AdvReac Severe Agitated Verified 04/06/24 17:45 [From Wellbutrin SR] Cephalosporin Allergy Unknown Anaphylaxis Uncoded 02/26/24 08:13 Penicillin Allergy Unknown Anaphylaxis Uncoded 02/26/24 08:13 Review of Systems 2 Review of Systems: Yes all other systems are reviewed and are negative Constitutional: Constitutional: Denies fatigue and Denies fever(s) Musculoskeletal: Musculoskeletal: Denies arthralgias and Denies joint swelling Integumentary/Breasts: Skin/Breast: Denies rash Endocrine: Endocrine: Denies fatigue PMFSH Past Medical History Attestation statement: The following information was validated with the patient. Medical History (Updated 04/06/24 @ 23:11 by VAISHALI Braden) Alcohol intoxication Family History Family History Other Substance use disorder Social History [facility] Patient Tobacco Use Status: Current everyday Tobacco user Tobacco use type: Cigarette Cigarette Packs Per Day: 1 Years Smoked: 15 years e-Cigarette/Vaping Use: Never Used Second Hand Smoke Exposure: No Advance Directives: No Advance Directives Information Provided: No Current occupational status: employed Cognitive needs: No Hearing needs: No Vision needs: No Physical Exam 2 Vital Signs: Vital Signs: Last Vital Signs Temp 98.1 F 04/06/24 22:35 Pulse 71 04/06/24 22:35 Resp 118 H 04/06/24 22:35 BP 112/74 04/06/24 20:04 Pulse Ox 98 04/06/24 22:35 O2 Del Method Room Air 04/06/24 22:35 BMI result Body Mass Index 22.4 Const: Other: Alert, well in appearance Orientation/consciousness: oriented to time Resp: Effort & Inspection: normal respiratory effort Cardio: Other: Nonlabored respirations Skin: Other: Warm dry no rash Neuro: General: oriented to time, no focal motor deficits and CN's II-XI intact bilaterally Extrem: Other: Swelling and erythema noted over the ball of the left foot, in relation to a callus, it is tender to palpation Psych: Other: Calm cooperative Course Course Course Narrative: This is an RME: Additional HPI, ROS, PE not included below will be deferred to primary provider. RME assessment and note performed by: Tracy Chaney PA-C This is a 38-year-old male who presents emergency department with complaints of atraumatic left foot pain and swelling since this morning. Patient reports that he feels as though he is standing on a platform. He injured his keane several days ago, no other injury. She reports that his foot feels very warm. Strong DP pulse. Plan: Labs, x-ray, further ER evaluation needed Medical Decision Making Medical Decision Making MDM Narrative: 38-year-old male presents with left foot pain times a day and a half. 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 The boots do not fit quite right, he has developed calluses on the plantar aspect of both feet over the ball of the foot. This morning, the left foot became painful, swollen and red. Denies fevers. No chronic issues to address History: Per patient I have considered the following differential diagnoses: Plantar fasciitis, cellulitis, purulent cellulitis, plantar wart Plan: The patient is assessment began from triage. Screening labs including an x-ray were obtained. Everything unremarkable. I have viewed the site with bedside ultrasound, there was no fluid collection to suggest abscess, we will treat him for cellulitis. I have independently reviewed the following tests: Labs: Slight leukocytosis, not anemic, no electrolyte abnormality X-ray left footR FOOT, LEFT CLINICAL INFORMATION: Pain in left foot. No known injury. COMPARISON: None available. TECHNIQUE: AP, lateral, and oblique views of the left foot. FINDINGS: There may be some soft tissue swelling over the plantar aspect of the forefoot underlying the metacarpophalangeal joints. No acute fracture, dislocation, radiopaque foreign body noted. No significant degenerative change seen. No ankle joint effusion. XR/XR foot LT min 3V IMPRESSION: * There is likely mild soft tissue swelling over the plantar aspect of the forefoot. Clinical correlation requested. * No acute fracture or dislocation. Electronically signed by: Donna Philip MD 04/06/2024 06:34 PM EDT Lab Data 04/06/24 18:36 04/06/24 18:36 Labs: Lab Results 04/06/24 Range/Units 18:36 WBC 10.9 H (4.8-10.8) X10*3/uL RBC 4.49 L (4.60-5.80) X10*6/uL Hgb 15.1 (14.0-18.0) g/dl Hct 42.7 (42.0-52.0) % MCV 95.1 (80.0-98.0) fL MCH 33.6 H (27.0-33.0) pg MCHC 35.4 (31.0-36.0) g/dl RDW 13.1 (11.0-16.0) % Plt Count 266 (160-400) X10*3/uL MPV 9.6 (9.4-12.4) fL Immature Gran % (Auto) 0.4 (0.0-0.4) % Neut % (Auto) 59.6 (45-73) % Lymph % (Auto) 27.8 (20-40) % Thurston % (Auto) 8.3 (2-11) % Eos % (Auto) 3.4 (0-4) % Baso % (Auto) 0.5 (0-2) % Lymph # (Auto) 3.0 (1.2-4.9) X10*3/uL Thurston # (Auto) 0.9 (0.1-1.2) X10*3/uL Eos # (Auto) 0.4 (0.0-0.4) X10*3/uL Baso # (Auto) 0.1 (0.0-0.2) X10*3/uL Abs Immat Gran (auto) 0.04 H (0.00-0.03) X10*3/uL Absolute Neuts (auto) 6.5 (2.0-8.3) x10*3/uL Absolute Nucleated RBC 0.000 (0.0-0.012) X10*3/uL Nucleated RBC % (auto) 0.0 (0.0-0.2) /100WBC ESR 2 (0-15) MM/HR Sodium 139 (135-145) mmol/L Potassium 4.3 (3.3-5.1) mmol/L Chloride 105 (96-108) mmol/L Carbon Dioxide 27 (22-29) mmol/L Anion Gap 11 L (12-20) BUN 21 H (9-16) mg/dL Creatinine 1.06 (0.5-1.4) mg/dL Estim Creat Clear Calc 99.0 Estimated GFR > 60 Random Glucose 89 (60-115) mg/dL Uric Acid 4.1 (3.4-7.0) mg/dL Calcium 9.2 (8.4-10.2) mg/dL Total Bilirubin 0.5 (0.0-1.0) mg/dL Direct Bilirubin 0.2 (0.0-0.5) mg/dL AST 23 (5-37) U/L ALT 23 (0-40) U/L Alkaline Phosphatase 60 (39-117) U/L C-Reactive Protein 0.21 (< or = 0.50) mg/dL Total Protein 7.4 (6.5-8.0) g/dL Albumin 4.2 (3.5-5.0) g/dL Discharge Plan Discharge Clinical Impression: Cellulitis of foot Patient Disposition: Home, Self-Care Instructions: Cellulitis (ED) Additional Instructions: You have cellulitis, skin infection. See home care instructions. Take the clindamycin as directed. Follow up with your primary care provider as needed. You can use [id number] Tylenol 1000 mg taken every 8 hours, alternated with the use of [id number] ibuprofen 600 mg taken every 6 hours with food. You have no lab abnormalities in the x-ray was negative for fracture or dislocation. Prescriptions: New clindamycin HCl 150 mg capsule 450 mg PO Q6H Qty: 84 0RF No Action nicotine (polacrilex) 2 mg gum 2 mg buccal Q2H Qty: 100 0RF cyclobenzaprine 5 mg tablet 5 mg PO TID PRN (Reason: muscle spasm) Qty: 14 0RF Stand Alone Forms: Work/School Release Print Language: Syriac
[2024-04-06 18:43] LABS: MANUAL DIFF FLAG NO
[2024-04-06 18:52] LABS: Basophils Absolute Auto 0.1 X10*3/uL (0.0-0.2); Basophils Percent Auto 0.5 % (0-2); Eosinophils Absolute Auto 0.4 X10*3/uL (0.0-0.4); Eosinophils Percent Auto 3.4 % (0-4); Hematocrit 42.7 % (42.0-52.0); Hemoglobin 15.1 g/dl (14.0-18.0); Imm Gran Abs Auto 0.04 X10*3/uL (0.00-0.03); Imm Gran Pct Auto 0.4 % (0.0-0.4); Lymphocytes Percent Auto 27.8 % (20-40); Mean Corpuscular HGB Conc 35.4 g/dl (31.0-36.0); Mean Corpuscular Hemoglobin 33.6 pg (27.0-33.0); Mean Corpuscular Volume 95.1 fL (80.0-98.0); Mean Platelet Volume 9.6 fL (9.4-12.4); Monocytes Absolute Auto 0.9 X10*3/uL (0.1-1.2); Monocytes Percent Auto 8.3 % (2-11); Neutrophils Absolute Auto 6.5 x10*3/uL (2.0-8.3); Neutrophils Percent Auto 59.6 % (45-73); Platelet Count 266 X10*3/uL (160-400); Red Blood Count 4.49 X10*6/uL (4.60-5.80); Red Cell Distribution Width 13.1 % (11.0-16.0); White Blood Count 10.9 X10*3/uL (4.8-10.8)
[2024-04-06 19:01] LABS: Alanine Aminotransferase 23 U/L (0-40); Albumin Level 4.2 g/dL (3.5-5.0); Alkaline Phosphatase 60 U/L (39-117); Anion Gap 11 (12-20); Aspartate Amino Transferase 23 U/L (5-37); Bilirubin Direct 0.2 mg/dL (0.0-0.5); Bilirubin Total 0.5 mg/dL (0.0-1.0); Blood Urea Nitrogen 21 mg/dL (9-16); C Reactive Protein 0.21 mg/dL (< or = 0.50); Calcium 9.2 mg/dL (8.4-10.2); Carbon Dioxide 27 mmol/L (22-29); Chloride 105 mmol/L (96-108); Estimated Glomerular Filt Rate > 60; Glucose Random 89 mg/dL (60-115); Potassium 4.3 mmol/L (3.3-5.1); Sodium 139 mmol/L (135-145); Total Protein 7.4 g/dL (6.5-8.0); Uric Acid 4.1 mg/dL (3.4-7.0)
[2024-04-06 20:04] VITALS: BP 112/74; PULSE 75; RESP 18; TEMP 36.8; O2SAT 98
[2024-04-06 20:05] LABS: Erythrocyte Sedimentation Rate 2 MM/HR (0-15)
[2024-04-06 22:35] VITALS: PULSE 71; RESP 118; TEMP 36.7; O2SAT 98
[2024-04-06] MEDS: Clindamycin HCL 150 MG CAPSULE 450 MG PO (23:15)
[2024-04-06 23:20] VITALS: BP 117/72; PULSE 71; RESP 18; TEMP 36.7; O2SAT 98
== END 2024-04-06 23:20 | disposition home or self-care (01) ==
PROVIDERS: Physician Assistant Medical; Emergency Provider Emergency Medicine; PCP Nurse Practitioner Family
DX: L03.116 Cellulitis of left lower limb (principal); M79.672 Pain in left foot; D72.829 Elevated white blood cell count, unspecified
CPT/HCPCS: 36415; 73630; 80048; 80076; 84550; 85025; 85652; 86140; 99282; 99283

== ENCOUNTER 2024-04-24 22:13 | Emergency (ER) | payer OTHER, SELFPAY ==
[2024-04-24 22:14] VITALS: BP 135/85; PULSE 58; RESP 19; TEMP 36.6; O2SAT 98; BMI 22.7
[2024-04-24 22:31] LABS: MANUAL DIFF FLAG NO
[2024-04-24 22:40] LABS: Basophils Percent Auto 0.4 % (0-2); Eosinophils Absolute Auto 0.3 X10*3/uL (0.0-0.4); Eosinophils Percent Auto 3.4 % (0-4); Hematocrit 44.2 % (42.0-52.0); Imm Gran Abs Auto 0.03 X10*3/uL (0.00-0.03); Imm Gran Pct Auto 0.3 % (0.0-0.4); Lymphocytes Absolute Auto 3.3 X10*3/uL (1.2-4.9); Lymphocytes Percent Auto 35.4 % (20-40); Mean Corpuscular HGB Conc 33.9 g/dl (31.0-36.0); Mean Corpuscular Hemoglobin 33.3 pg (27.0-33.0); Mean Platelet Volume 9.5 fL (9.4-12.4); Monocytes Absolute Auto 0.8 X10*3/uL (0.1-1.2); Monocytes Percent Auto 8.3 % (2-11); Neutrophils Absolute Auto 4.9 x10*3/uL (2.0-8.3); Neutrophils Percent Auto 52.2 % (45-73); Platelet Count 252 X10*3/uL (160-400); Red Blood Count 4.51 X10*6/uL (4.60-5.80); Red Cell Distribution Width 13.4 % (11.0-16.0); White Blood Count 9.4 X10*3/uL (4.8-10.8)
[2024-04-24 22:48] LABS: Alanine Aminotransferase 25 U/L (0-40); Albumin Level 4.1 g/dL (3.5-5.0); Alkaline Phosphatase 75 U/L (39-117); Anion Gap 11 (12-20); Aspartate Amino Transferase 28 U/L (5-37); Bilirubin Direct 0.1 mg/dL (0.0-0.5); Bilirubin Total 0.4 mg/dL (0.0-1.0); Blood Urea Nitrogen 19 mg/dL (9-16); Calcium 9.1 mg/dL (8.4-10.2); Carbon Dioxide 28 mmol/L (22-29); Chloride 107 mmol/L (96-108); Creatinine Clr Calc Pharmacy 89.5; Estimated Glomerular Filt Rate > 60; Glucose Random 100 mg/dL (60-115); Lipase 22 U/L (8-78); Potassium 4.4 mmol/L (3.3-5.1); Sodium 142 mmol/L (135-145); Total Protein 7.4 g/dL (6.5-8.0)
[2024-04-25 00:10] VITALS: BP 113/76; PULSE 56; RESP 16; TEMP 36.7; O2SAT 97
--- NOTE | 2024-04-25 00:13 | PC.NURSE ---
pt from home, a&ox4, respirations even and unlabored. 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 pt reports he has hx of hernia in which he is able to push it back into place. reports his pcp was not going to follow p. pt reports the pain radiates into his lower back and reports nausea. denies v/d, denies chest pain, vss.
--- NOTE | 2024-04-25 04:39 | ED.GENADULT ---
HPI - General Adult General Chief complaint: Abdominal Pain Stated complaint: abd hernia Time Seen by Provider: 04/25/24 04:39 History of Present Illness ED Provider: Mitra STALLWORTH narrative: The patient is a 38-year-old male who says that for the last several months he has noticed what he thinks is a hernia in his abdominal wall above his belly button. He says that occasionally he feels something pop out which he is usually able to push back in. Tonight he had more discomfort associated with this unusual and came to the emergency room. The patient says that he discussed this with his primary care doctor a few months ago but at that time it was not bothering him so much. He has not yet seen a general surgeon. He does a lot of lifting at work. No nausea or vomiting. No fever, sweats, chills. The patient is a smoker. Related Data Previous Rx's ?Medication ?Instructions ?Recorded nicotine (polacrilex) 2 mg gum 2 mg buccal Q2H #100 ea 01/22/24 cyclobenzaprine 5 mg tablet 5 mg PO TID PRN muscle spasm #14 02/26/24 tabs clindamycin HCl 150 mg capsule 450 mg (3 x 150 mg) PO Q6H #84 caps 04/06/24 Allergies Allergy/AdvReac Type Severity Reaction Status Date / Time Cephalosporins Allergy Unknown ANAPHYLACTIC Verified 04/24/24 22:18 [CEPHALOSPORINS] REACTION Penicillins [PENICILLINS] Allergy Unknown ANAPHYLAXIS Verified 04/24/24 22:18 bupropion AdvReac Severe Agitated Verified 04/24/24 22:18 [From Wellbutrin SR] Cephalosporin Allergy Unknown Anaphylaxis Uncoded 04/24/24 22:18 Penicillin Allergy Unknown Anaphylaxis Uncoded 04/24/24 22:18 Review of Systems Review of Systems: Yes all other systems are reviewed and are negative [facility] Past Medical History Medical History (Updated 04/25/24 @ 04:54 by Mike Manriquez MD) Alcohol intoxication Family History Family History Other Substance use disorder Social History Social History [facility] Patient Tobacco Use Status: Current everyday Tobacco user Tobacco use type: Cigarette Cigarette Packs Per Day: 1 Years Smoked: 15 years Smoked in Last 30 Days: Yes e-Cigarette/Vaping Use: Never Used Second Hand Smoke Exposure: No Use of substances other than those prescribed or required for medical reasons: Yes Substance Use Type: Marijuana Advance Directives: No Advance Directives Information Provided: Yes Do you have a plan to hurt others: No Plan Current occupational status: employed Cognitive needs: No Hearing needs: No Vision needs: No Physical Exam ED Vital Signs: Vital Signs - 24 hr 04/24/24 22:14 04/25/24 00:10 04/25/24 05:03 Temperature 98 F 98.0 F 98.0 F Pulse Rate 58 56 58 Respiratory Rate 19 16 16 Blood Pressure 135/85 113/76 113/75 Pulse Oximetry 98 97 97 Oxygen Delivery Method Room Air Room Air 04/25/24 05:10 Temperature 98.0 F Pulse Rate 58 Respiratory Rate 16 Blood Pressure 113/75 Pulse Oximetry 97 Oxygen Delivery Method Room Air BMI result Body Mass Index 22.7 Const Other: The patient is a slim 38-year-old male who was awake and alert and does not appear in acute distress. HENMT Other: Face is symmetrical. Mucous membranes moist. Eyes General: appearance normal, both eyes and all related structures Neck Neck: Yes full ROM Resp Effort & Inspection: normal respiratory effort Auscultation: clear to auscultation bilaterally Cardio Rate: bradycardic Rhythm: regular rhythm Heart sounds: S1 normal heart sound present and S2 normal heart sound present GI Other: The abdomen is flat and soft. There is possible small defect in the midline above the umbilicus. There is no herniated material at the moment. Skin Other: Skin is dry and unremarkable Neuro Other: The patient is awake and alert with a normal mental status. Face is symmetrical. Speech is normal. He moves his extremities normally. Gait is normal. Seems grossly neurologically intact. Extrem Other: No peripheral edema Medical Decision Making Medical Decision Making MDM Narrative: The patient is a 38-year-old male who was quite slim. He has what I think is a ventral hernia. Currently there is no significant herniation of any contents. The patient has a lot of lifting at work and the hernia seems to be interfering with his work. I do not think there is an acute surgical emergency present tonight. I spoke to the patient about how to reduce his hernia in case it comes out and is difficult to reduce. He was given the contact information for [facility] general surgeons and should call them later today to set up an appointment soon. He was given a work note for light duty. Lab Data 04/24/24 22:26 04/24/24 22:26 Labs: Lab Results 04/24/24 Range/Units 22:26 WBC 9.4 (4.8-10.8) X10*3/uL RBC 4.51 L (4.60-5.80) X10*6/uL Hgb 15.0 (14.0-18.0) g/dl Hct 44.2 (42.0-52.0) % MCV 98.0 (80.0-98.0) fL MCH 33.3 H (27.0-33.0) pg MCHC 33.9 (31.0-36.0) g/dl RDW 13.4 (11.0-16.0) % Plt Count 252 (160-400) X10*3/uL MPV 9.5 (9.4-12.4) fL Immature Gran % (Auto) 0.3 (0.0-0.4) % Neut % (Auto) 52.2 (45-73) % Lymph % (Auto) 35.4 (20-40) % [place] % (Auto) 8.3 (2-11) % Eos % (Auto) 3.4 (0-4) % Baso % (Auto) 0.4 (0-2) % Lymph # (Auto) 3.3 (1.2-4.9) X10*3/uL [place] # (Auto) 0.8 (0.1-1.2) X10*3/uL Eos # (Auto) 0.3 (0.0-0.4) X10*3/uL Baso # (Auto) 0.0 (0.0-0.2) X10*3/uL Abs Immat Gran (auto) 0.03 (0.00-0.03) X10*3/uL Absolute Neuts (auto) 4.9 (2.0-8.3) x10*3/uL Absolute Nucleated RBC 0.000 (0.0-0.012) X10*3/uL Nucleated RBC % (auto) 0.0 (0.0-0.2) /100WBC Sodium 142 (135-145) mmol/L Potassium 4.4 (3.3-5.1) mmol/L Chloride 107 (96-108) mmol/L Carbon Dioxide 28 (22-29) mmol/L Anion Gap 11 L (12-20) BUN 19 H (9-16) mg/dL Creatinine 1.19 (0.5-1.4) mg/dL Estim Creat Clear Calc 89.5 Estimated GFR > 60 Random Glucose 100 (60-115) mg/dL Calcium 9.1 (8.4-10.2) mg/dL Total Bilirubin 0.4 (0.0-1.0) mg/dL Direct Bilirubin 0.1 (0.0-0.5) mg/dL AST 28 (5-37) U/L ALT 25 (0-40) U/L Alkaline Phosphatase 75 (39-117) U/L Total Protein 7.4 (6.5-8.0) g/dL Albumin 4.1 (3.5-5.0) g/dL Lipase 22 (8-78) U/L Discharge Plan Discharge Clinical Impression: Ventral hernia Patient Disposition: Home, Self-Care Instructions: Ventral Hernia (ED) Additional Instructions: I think it would be appropriate for you to see a surgeon to discuss this hernia. Please contact [facility] general surgeons later this morning to set up an appointment soon. If at any point the hernia comes out I usually recommend that a person lie on the ground and apply gentle pressure to the hernia while taking slow deep breaths to help get the hernia back in. Return to the emergency room if significantly worse. Prescriptions: No Action clindamycin HCl 150 mg capsule 450 mg PO Q6H Qty: 84 0RF nicotine (polacrilex) 2 mg gum 2 mg buccal Q2H Qty: 100 0RF cyclobenzaprine 5 mg tablet 5 mg PO TID PRN (Reason: muscle spasm) Qty: 14 0RF Referrals: [facility] General Surgeons [Provider Group] (Midline supra umbilical ventral hernia) Stand Alone Forms: Work/School Release Interventions: ED Discharge Assessment Last Done: 04/25/24 05:10 Discharge Date/Time: 04/25/24 05:11 Print Language: Thai
[2024-04-25 05:03] VITALS: BP 113/75; PULSE 58; RESP 16; TEMP 36.7; O2SAT 97
[2024-04-25 05:10] VITALS: BP 113/75; PULSE 58; RESP 16; TEMP 36.7; O2SAT 97
== END 2024-04-25 05:11 | disposition home or self-care (01) ==
PROVIDERS: Emergency Provider Emergency Medicine
DX: K43.9 Ventral hernia without obstruction or gangrene (principal); Z79.899 Other long term (current) drug therapy
CPT/HCPCS: 36415; 80048; 80076; 83690; 85025; 99283; 99284

== ENCOUNTER 2024-04-26 08:02 | Outpatient (AMB) | payer OTHER, SELFPAY ==
[2024-04-26 08:06] VITALS: BP 106/60; PULSE 66; O2SAT 97
--- NOTE | 2024-04-26 08:06 | MHC.OFFWIV ---
Intake Vital Signs 04/26/24 08:06 Weight 167 lb BP 106/60 Blood Pressure Location Lt brachial Position Sitting Pulse 66 Pulse Source Pulse Oximeter Pulse Oximetry (%) 97 Oxygen Delivery Method Room Air Intake Visit Reasons: EP-abdominal hernia Intake Note: Patient here because she has ventral hernia and needs a more specific list of restrictions for work. Patient Tobacco Use Status: Current everyday Tobacco user Allergies Cephalosporins [CEPHALOSPORINS] Allergy (Unknown, Verified 04/26/24 08:13) ANAPHYLACTIC REACTION Penicillins [PENICILLINS] Allergy (Unknown, Verified 04/26/24 08:13) ANAPHYLAXIS bupropion [From Wellbutrin SR] Adverse Reaction (Severe, Verified 04/26/24 08:13) Agitated Cephalosporin Allergy (Unknown, Uncoded 04/26/24 08:13) Anaphylaxis Penicillin Allergy (Unknown, Uncoded 04/26/24 08:13) Anaphylaxis Do you need a note to return to daycare/school/sports/work: Yes HPI HPI Comments History of Present Illness Details 38 y/o male patient who presents to the walk in clinic asking for work note. Pt was seen yesterday at [facility] due to Ventral hernia. He was referred to General surgery and has an appointment Monday next week for consultation. Pt asking for a work note so he can return to work with no restrictions. [facility] Medical History (Updated 04/26/24 @ 00:01 by Oneida Martinez) Alcohol intoxication Family History Other Substance use disorder Social History Housing: Condominium Patient Tobacco Use Status: Current everyday Tobacco user Tobacco use type: Cigarette Cigarette Packs Per Day: 1 Years Smoked: 15 years e-Cigarette/Vaping Use: Never Used Second Hand Smoke Exposure: No Substance Use Type: Marijuana Current occupational status: employed Cognitive needs: No Hearing needs: No Vision needs: No Review of Systems Const All systems reviewed & are unremarkable except as noted in HPI and below Physical Exam Vital Signs: Last Vital Signs Pulse 66 04/26/24 08:06 BP 106/60 04/26/24 08:06 Pulse Ox 97 04/26/24 08:06 Oxygen Delivery Method Room Air 04/26/24 08:06 Const General: cooperative, comfortable and no acute distress Nutritional Appearance: thin Orientation/consciousness: patient oriented x3 Resp Effort & Inspection: normal respiratory effort Cardio Heart sounds: S1 normal heart sound present and S2 normal heart sound present GI Other: No visible hernia seen - there is a small lump palpated suprapubic region. Palpation (GI): Soft to palpation, not firm, Tenderness to palpation present (GI) suprapubicly, no guarding and not rigid Neuro General: patient oriented x3 Psych Speech and movement: Normal speech and movement present Assessment & Plan Assessment & Plan (1) Hernia: Code(s): K46.9 - Unspecified abdominal hernia without obstruction or gangrene Plan: Pt will f/u with General Surgery as scheduled, Monday Work note given to patient, to RTW no restrictions. Wrapped his Abdomen with Antonio Bandage for abdominal binder. Coding Level of Care Code Est Pt Level 3 (28494) Diagnoses Hernia K46.9 Time Spent (min) 15
== END 2024-04-26 11:06 | disposition home or self-care (01) ==
PROVIDERS: Visit Provider Nurse Practitioner Family
DX: K46.9 Unspecified abdominal hernia without obstruction or gangrene (principal)

== ENCOUNTER → 2024-04-26 08:02 | Outpatient (BNVA) | payer OTHER, SELFPAY | PROVIDERS: Visit Provider Nurse Practitioner Family | DX: K43.9 Ventral hernia without obstruction or gangrene (principal) | CPT/HCPCS: 99212 ==

== ENCOUNTER 2024-04-29 11:03 | Outpatient (AMB) | payer OTHER, SELFPAY ==
--- NOTE | 2024-04-29 11:04 | A.OFFVIS_ITS ---
Vital Signs 04/29/24 11:12 Height 5 ft 11 in Weight 165 lb BMI 23.0 BP 141/78 H Blood Pressure Location Rt brachial Position Sitting Pulse 59 Intake Visit Reasons: Ventral hernia Intake Note: Patient referred after ED visit on 04-25-24 for ventral hernia. Became aware of it about 5m ago. Patient c/o: bulge on abdominal wall that is more noticeable at times. Heavy lifting at work. [employer] Specialist Required: No Accompanied by: Self / Same As Patient Allergies Cephalosporins [CEPHALOSPORINS] Allergy (Unknown, Verified 04/29/24 11:09) ANAPHYLACTIC REACTION Penicillins [PENICILLINS] Allergy (Unknown, Verified 04/29/24 11:09) ANAPHYLAXIS bupropion [From Wellbutrin SR] Adverse Reaction (Severe, Verified 04/29/24 11:09) Agitated Cephalosporin Allergy (Unknown, Uncoded 04/29/24 11:09) Anaphylaxis Penicillin Allergy (Unknown, Uncoded 04/29/24 11:09) Anaphylaxis HPI Comments Details: Patient presents for evaluation of a symptomatic supraumbilical ventral hernia. He has had this least 5 months time. He does significant heavy lifting/strenuous activities that it placed of employment and thinks this is were developed. He is currently on light duty. Patient otherwise is tolerating a diet. Having regular bowel habits. No other GI issues or complaints. Chart was reviewed and patient evaluated [facility] Medical History (Updated 04/29/24 @ 11:10 by CHARITY Mark) Parapharyngeal abscess Alcohol intoxication Family History Other Substance use disorder Social History (Updated 04/29/24 @ 11:10 by CHARITY Mark) Housing: Condominium Patient Tobacco Use Status: Current everyday Tobacco user Tobacco use type: Cigarette Cigarette Packs Per Day: 0.5 Cigarettes Per Day: 10 Years Smoked: 15 years e-Cigarette/Vaping Use: Never Used Second Hand Smoke Exposure: No Substance Use Type: Marijuana Current occupational status: employed Cognitive needs: No Hearing needs: No Vision needs: No Physical Exam Vital Signs: Last Vital Signs Pulse 59 04/29/24 11:12 BP 141/78 H 04/29/24 11:12 BMI result Body Mass Index 23.0 Const Other: Tall slender male in no acute distress Chest Other: Chest breath sounds bilaterally, HS 1 in 2 GI Other: Patient was examined both supine and standing with Valsalva. Bilateral groin exam negative. Genitalia within normal limits. Abdomen is soft. Umbilicus negative for hernia. Patient has a supraumbilical reducible ventral hernia measuring roughly 2 cm. Assessment & Plan Assessment & Plan (1) Ventral hernia: Code(s): K43.9 - Ventral hernia without obstruction or gangrene Category: Surgical Plan Risks, benefits, and alternatives of open supraumbilical ventral hernia repair with mesh were reviewed with the patient and included but not limited to bleeding, infection, recurrence, numbness, pain, scarring the patient wished to proceed. All questions answered. Arrangements were made for this. Patient is to continue light duty at his place of employment in the meantime. Coding Level of Care Code New Pt Level 5 (19839) Diagnoses Ventral hernia K43.9
[2024-04-29 11:12] VITALS: BP 141/78; PULSE 59; BMI 23.0
== END 2024-04-29 11:40 | disposition home or self-care (01) ==
PROVIDERS: Visit Provider Surgery
DX: K43.9 Ventral hernia without obstruction or gangrene (principal)
CPT/HCPCS: 99204

== ENCOUNTER → 2024-04-29 11:03 | Outpatient (BNVA) | payer OTHER, SELFPAY | PROVIDERS: Visit Provider Surgery | DX: K43.9 Ventral hernia without obstruction or gangrene (principal) | CPT/HCPCS: 99202 ==

== ENCOUNTER 2024-05-10 05:48 | Day surgery (SDC) | payer OTHER, SELFPAY ==
--- NOTE | 2024-05-09 11:04 | MHC.SHP ---
Pre-Procedural Eval Section A - 24 Hr Update-Section A only Date of Service: 05/10/24 The patient is an INPATIENT: No Changes since office visit: No Cold of Flu in the past 2 weeks, No New Medical Problems, No Changes in Medication and No Patient answered all questions Section B - Complete if H&P > 30 days Chief Complaint: Ventral hernia without obstruction or gangrene Allergies: Allergies Allergy/AdvReac Type Severity Reaction Status Date / Time Cephalosporins Allergy Unknown ANAPHYLACTIC Verified 04/29/24 11:09 [CEPHALOSPORINS] REACTION Penicillins [PENICILLINS] Allergy Unknown ANAPHYLAXIS Verified 04/29/24 11:09 bupropion AdvReac Severe Agitated Verified 04/29/24 11:09 [From Wellbutrin SR] Cephalosporin Allergy Unknown Anaphylaxis Uncoded 04/29/24 11:09 Penicillin Allergy Unknown Anaphylaxis Uncoded 04/29/24 11:09 Review of Systems Sugical H&P ROS: Negative: Constitution, Cardiovascular, Respiratory, Neurological, Psychiatric, Hem-Onc, Allergic/Immunologic, Gastrointestinal, Genitourinary, Musculoskeletal, Integumentary, Endocrine and Eyes/Ears/Nose/Throat Exam Surgical H&P Exam: Normal: HEENT, Normal: Heart, Normal: Lungs, Normal: Extremities, Normal: Abdomen, Normal: Skin and Normal: Neurological Plan I have reviewed the history and physical and performed a pertinent physical examination on my patient. No changes have occurred unless specified. Time Spent With Patient Time: Total time managing care of this patient today ____ minutes.
[2024-05-10 06:13] VITALS: BMI 22.0
[2024-05-10 06:35] VITALS: BP 101/67; PULSE 62; RESP 12; TEMP 36.6; O2SAT 96
--- NOTE | 2024-05-10 07:07 | P.CONAN_ITS ---
[facility] Active Problems Active Problems: All Active Problems Ventral hernia (Acute) Back pain (Acute) Condyloma (Acute) Knee pain (Acute) Abnormal x-ray (Acute) Pain of right hip (Acute) Corneal abrasion due to contact lens (Acute) Gingivitis (Acute) GERD (gastroesophageal reflux disease) (Acute) ADD (attention deficit disorder) (Acute) Hypotension, postural (Acute) Upper respiratory tract infection (Acute) Exposure to COVID-19 virus (Acute) Genital warts (Acute) Physical exam (Acute) Abscess (Acute) Diarrhea (Acute) Past Medical History Medical History GERD (gastroesophageal reflux disease) ADD (attention deficit disorder) Parapharyngeal abscess Alcohol intoxication Family History Family History Other Substance use disorder Surgical History History of Problems with Anesthesia: No Social History [facility] Are you a primary career information specialist to a significant other at home: No Do you presently have visiting nurse or other home services: No Patient Tobacco Use Status: Current everyday Tobacco user Tobacco use type: Cigarette Cigarette Packs Per Day: 0.5 Cigarettes Per Day: 12 Years Smoked: 15 years Smoked in Last 30 Days: Yes e-Cigarette/Vaping Use: Never Used Second Hand Smoke Exposure: No Use of substances other than those prescribed or required for medical reasons: Yes Substance Use Type: Marijuana Substance Use Frequency: Weekly Have you been hit, kicked, punched, or otherwise hurt by someone within the past year? If so, by whom?: No Are you DNR?: No Advance Directives: No Advance Directives Information Provided: Yes Recently lost weight without trying: No Nutrition Risks: No Nutritional Risk Poor oral hygiene: No Current occupational status: employed Cognitive needs: No Hearing needs: No Vision needs: No Meds Allergies Allergy/AdvReac Type Severity Reaction Status Date / Time Cephalosporins Allergy Unknown ANAPHYLACTIC Verified 05/10/24 06:10 [CEPHALOSPORINS] REACTION Penicillins [PENICILLINS] Allergy Unknown ANAPHYLAXIS Verified 05/10/24 06:10 bupropion AdvReac Severe Agitated Verified 05/10/24 06:10 [From Wellbutrin SR] Cephalosporin Allergy Unknown Anaphylaxis Uncoded 04/29/24 11:09 Penicillin Allergy Unknown Anaphylaxis Uncoded 04/29/24 11:09 Active Medications: Current Medications Lactated Ringer's (Lr) 1,000 mls @ 50 mls/hr IVCONT .Q20H NAIN Exam Height,Weight and Vital Signs: Height 6 ft Weight 73.482 kg Last Vital Signs Temp 97.9 F 05/10/24 06:35 Pulse 62 05/10/24 06:35 Resp 12 05/10/24 06:35 BP 101/67 05/10/24 06:35 Pulse Ox 96 05/10/24 06:35 O2 Del Method Room Air 05/10/24 06:35 Airway Mallampati Class: III TM Dist: >3cm Neck ROM: Full Loose/Missing/Broken Teeth: No Heart: RRR Lungs: CTA Assessment and Plan Assessment Anesthesia Assessment: Anesthesia Plan Discussed and Chart Reviewed Final Anesthetic Review History of Problems with Anesthesia: No NPO: Yes ASA Class: II Final Preanesthetic Review: Meds/Allgs Chart Reviewed, Consent Obtained/Reviewed and Anes Risks/Benef Reviewed Patient Risk: Low Procedure Risk: Low Anesthetic Plan Anesthetic Plan: GA Disposition: Standard PACU
[2024-05-10] MEDS: Lactated Ringers 1,000 ML 50 ML IVCONT (07:21)
--- NOTE | 2024-05-10 07:55 | W.PM.OPN ---
Operative Note Operative Note Date of Service: 05/10/24 Narrative: Preoperative diagnosis: [] Symptomatic incarcerated supraumbilical ventral hernia Postop diagnosis: [] The same Procedure [] supraumbilical incarcerated ventral herniorrhaphy Surgeon: [] Francis Liquid Yeast Supervisor: [] Type of Anesthesia: [] General Indication for surgery: [] Roughly 3 cm supraumbilical incarcerated ventral hernia with omental contents Findings: [] Patient was brought to the operating room, placed on the operating table in supine position, and after an adequate level of general anesthesia was induced, the patient's abdomen was prepped and draped in usual sterile fashion using a transverse incision over the supraumbilical incarcerated ventral hernia, this carried down through skin, subcutaneous tissue, where hernia sac was identified, circumferentially dissected down the fascia and opened. Incarcerated omental contents were reduced. Sac was amputated using Bovie. Fascia margins were circumferentially cleared. Appropriately sized Bard mesh was placed in this defect and the superficial layer of the mesh circumferentially sutured to the surrounding fascia using interrupted 0 Ethibond suture. At completion, mesh was in good position with no gaps or tension. Wound was irrigated, secured hemostasis, and closed in the following manner; subcutaneous tissue was reapproximated using interrupted 3-0 Vicryl sutures. Skin was closed using interrupted 3-0 dermal 3-0 Vicryl sutures followed by Steri-Strips and sterile dressings. Wound was infiltrated at the beginning at the end with 0.5% Marcaine/1% lidocaine. Sponge, needle, and instrument counts were reported correct. Patient tolerated the procedure well and emerged from anesthesia stable condition. EBL minimal
[2024-05-10 07:57] VITALS: BP 125/69; PULSE 61; RESP 12; TEMP 36.3; O2SAT 97
[2024-05-10 08:02] VITALS: BP 120/76; PULSE 58; RESP 17; O2SAT 98
[2024-05-10 08:05] VITALS: BP 125/69; PULSE 57; RESP 17; O2SAT 98
[2024-05-10 08:10] VITALS: BP 129/87; PULSE 58; RESP 16; O2SAT 98
[2024-05-10 08:25] VITALS: BP 136/89; PULSE 50; RESP 16; TEMP 36.4; O2SAT 98
== END 2024-05-10 09:15 | disposition home or self-care (01) ==
PROVIDERS: PCP Nurse Practitioner Family; Visit Provider Surgery
PROC: (CPT 49592; principal; 2024-05-10 07:30)
DX: K43.6 Other and unspecified ventral hernia with obstruction, without gangrene (principal); Z88.0 Allergy status to penicillin; Z88.1 Allergy status to other antibiotic agents; Z88.8 Allergy status to other drugs, medicaments and biological substances; F17.210 Nicotine dependence, cigarettes, uncomplicated; F98.8 Other specified behavioral and emotional disorders with onset usually occurring in childhood and adolescence
CPT/HCPCS: 49592; C1781; J0736; J1100; J2003; J2250; J2405; J2704; J2795; J3010

== ENCOUNTER → 2024-05-10 05:48 | Outpatient (BNV) | payer OTHER, SELFPAY | PROVIDERS: PCP Nurse Practitioner Family; Visit Provider Surgery | DX: K43.9 Ventral hernia without obstruction or gangrene (principal) | CPT/HCPCS: 49593 ==

== ENCOUNTER 2024-05-21 10:45 | Outpatient (AMB) | payer OTHER, SELFPAY ==
--- NOTE | 2024-05-21 10:47 | MHC.OFFVIS ---
Intake Visit Reasons: S/P supraumbilical ventral hernia w/mesh Intake Note: Patient here s/p supraumbilical central hernia w/mesh. Reports incisions healing well. Patient c/o: steri strips in placed. Still taking rx pain meds as needed to sleep. SX: 05-10-2024. Web Solutions Architect Required: No Accompanied by: Self / Same As Patient Allergies Cephalosporins [CEPHALOSPORINS] Allergy (Unknown, Verified 05/21/24 10:49) ANAPHYLACTIC REACTION Penicillins [PENICILLINS] Allergy (Unknown, Verified 05/21/24 10:49) ANAPHYLAXIS bupropion [From Wellbutrin SR] Adverse Reaction (Severe, Verified 05/21/24 10:49) Agitated Cephalosporin Allergy (Unknown, Uncoded 05/21/24 10:49) Anaphylaxis Penicillin Allergy (Unknown, Uncoded 05/21/24 10:49) Anaphylaxis HPI Comments Details: Patient presents for follow-up status post supraumbilical ventral hernia repair. He is doing quite well but he is tolerating a diet. Having regular bowel habits. He is increasing his activity level. He has minimal incisional discomfort. He would like to return to work with light duty. [facility] Medical History GERD (gastroesophageal reflux disease) ADD (attention deficit disorder) Parapharyngeal abscess Alcohol intoxication Surgical History (Updated 05/21/24 @ 10:56 by Mason Blanco MD) Ventral hernia (05/10/24) Family History Other Substance use disorder [facility] Are you a primary adult day care worker to a significant other at home: No Do you presently have visiting nurse or other home services: No Patient Tobacco Use Status: Current everyday Tobacco user Tobacco use type: Cigarette Cigarette Packs Per Day: 0.5 Cigarettes Per Day: 12 Years Smoked: 15 years e-Cigarette/Vaping Use: Never Used Second Hand Smoke Exposure: No Substance Use Type: Marijuana Current occupational status: employed Cognitive needs: No Hearing needs: No Vision needs: No Physical Exam GI Other: Abdomen is soft. Incision clean dry and intact healing well Assessment & Plan Assessment & Plan (1) Status post hernia repair: Code(s): Z98.890 - Other specified postprocedural states; Z87.19 - Personal history of other diseases of the digestive system Category: Medical Plan Patient was been given local instructions, a note for work for 3 weeks light duty, and will otherwise follow-up p.r.n.. All questions answered. Coding Level of Care Code Global (54249) Diagnoses Status post hernia repair Z98.890; Z87.19
== END 2024-05-21 11:04 | disposition home or self-care (01) ==
PROVIDERS: Visit Provider Surgery
DX: K43.9 Ventral hernia without obstruction or gangrene (principal); Z09 Encounter for follow-up examination after completed treatment for conditions other than malignant neoplasm
CPT/HCPCS: 99212

== ENCOUNTER → 2024-05-21 10:45 | Outpatient (BNVA) | payer OTHER, SELFPAY | PROVIDERS: Visit Provider Surgery | DX: Z09 Encounter for follow-up examination after completed treatment for conditions other than malignant neoplasm (principal); Z87.19 Personal history of other diseases of the digestive system; Z98.890 Other specified postprocedural states | CPT/HCPCS: 99212 ==

== ENCOUNTER 2024-06-20 22:59 | Emergency (ER) | payer OTHER, SELFPAY ==
[2024-06-20 23:25] VITALS: BP 122/80; PULSE 62; RESP 16; TEMP 36.7; O2SAT 100; BMI 22.3
--- NOTE | 2024-06-21 00:21 | ED.DENTAL ---
HPI - Dental/Oral General Chief complaint: Skin/Abscess/Foreign Body Stated complaint: dental abcess Time Seen by Provider: 06/21/24 00:21 Source: patient Mode of arrival: ambulatory Limitations: no limitations History of Present Illness ED Provider: HPI Narrative: Patient's history of dental caries noticed increased pain in right lower molar and for last 2 days no swelling of the right jaw no fever Related Data Previous Rx's ?Medication ?Instructions ?Recorded nicotine (polacrilex) 2 mg gum 2 mg buccal Q2H #100 ea 01/22/24 hydrocodone 5 mg-acetaminophen 325 1 tab PO Q4-6H PRN pain #30 tabs 05/10/24 mg tablet hydrocodone 5 mg-acetaminophen 325 1 tab PO Q4-6H PRN pain #30 tabs 05/17/24 mg tablet clindamycin HCl 300 mg capsule 300 mg PO TID #30 caps 06/21/24 oxycodone 5 mg tablet 5 mg PO Q6H PRN pain #20 tabs 06/21/24 Allergies Allergy/AdvReac Type Severity Reaction Status Date / Time Cephalosporins Allergy Unknown ANAPHYLACTIC Verified 06/20/24 23:31 [CEPHALOSPORINS] REACTION Penicillins [PENICILLINS] Allergy Unknown ANAPHYLAXIS Verified 06/20/24 23:31 bupropion AdvReac Severe Agitated Verified 06/20/24 23:31 [From Wellbutrin SR] Cephalosporin Allergy Unknown Anaphylaxis Uncoded 05/21/24 10:49 Penicillin Allergy Unknown Anaphylaxis Uncoded 05/21/24 10:49 Review of Systems Review of Systems: Yes all other systems are reviewed and are negative PMFSH Past Medical History Medical History GERD (gastroesophageal reflux disease) ADD (attention deficit disorder) Parapharyngeal abscess Alcohol intoxication Surgical History Ventral hernia (05/10/24) Family History Family History Other Substance use disorder Social History Social History Housing: Condominium Are you a primary caregiver services home to a significant other at home: No Do you presently have visiting nurse or other home services: No Patient Tobacco Use Status: Current everyday Tobacco user Tobacco use type: Cigarette Cigarette Packs Per Day: 0.5 Cigarettes Per Day: 12 Years Smoked: 15 years e-Cigarette/Vaping Use: Never Used Second Hand Smoke Exposure: No Substance Use Type: Marijuana Advance Directives: No Advance Directives Information Provided: No Current occupational status: employed Cognitive needs: No Hearing needs: No Vision needs: No Physical Exam Vital Signs: Vital Signs: Last Vital Signs Temp 98.0 F 06/20/24 23:25 Pulse 62 06/20/24 23:25 Resp 16 06/20/24 23:25 BP 122/80 06/20/24 23:25 Pulse Ox 100 06/20/24 23:25 O2 Del Method Room Air 06/20/24 23:25 BMI result Body Mass Index 22.3 Appearance: Alert. Oriented X3. No acute distress. ENT: Pharynx normal. Oral Mucosa moist Neck: Normal inspection. Neck supple. CVS: Normal heart rate and rhythm. Pulses normal. Respiratory: No respiratory distress. Equal air entry bilateral, Abdomen: Soft and nontender. Bowel sounds are present, Skin: Skin warm and dry. Normal skin color. Normal skin turgor. Extremities: No lower extremity edema. No calf tenderness Neuro: Oriented X 3. HEENT: Teeth image: 1. Dental caries with abscess Medical Decision Making Medical Decision Making MDM Narrative: Patient's right dental abscess tooth number 30 needle aspiration was done at 1 cc pus was drained patient is feeling much better after the discharge patient home on clindamycin Procedures Abscess I/D Site: oral Side (if applicable): right Technique: needle aspiration Amount of fluid expressed (mL): 1 Sent for culture/gram staining?: No Discharge Plan Discharge Clinical Impression: Dental abscess Patient Disposition: Home, Self-Care Instructions: Dental Abscess (ED) Additional Instructions: Follow up with a dentist Take antibiotics and pain medication as prescribed Prescriptions: New clindamycin HCl 300 mg capsule 300 mg PO TID Qty: 30 0RF oxycodone 5 mg tablet 5 mg PO Q6H PRN (Reason: pain) Qty: 20 0RF Rx Instructions: Partial Fill upon patient request. No Action hydrocodone-acetaminophen 5-325 mg tablet 1 tab PO Q4-6H PRN (Reason: pain) Qty: 30 0RF Rx Instructions: Partial Fill upon patient request. hydrocodone-acetaminophen 5-325 mg tablet 1 tab PO Q4-6H PRN (Reason: pain) Qty: 30 0RF Rx Instructions: Partial Fill upon patient request. nicotine (polacrilex) 2 mg gum 2 mg buccal Q2H Qty: 100 0RF Print Language: Albanian
[2024-06-21] MEDS: Clindamycin HCL 300 MG CAPSULE PO (00:48)
[2024-06-21] MEDS: oxyCODONE HCl Immed Release 5 MG TABLET 10 MG PO (00:48)
[2024-06-21 00:55] VITALS: BP 122/80; PULSE 62; RESP 16; TEMP 36.7; O2SAT 100
== END 2024-06-21 00:58 | disposition home or self-care (01) ==
PROVIDERS: Emergency Provider Internal Medicine; PCP Nurse Practitioner Family
DX: K04.7 Periapical abscess without sinus (principal); K08.89 Other specified disorders of teeth and supporting structures
CPT/HCPCS: 99283

== ENCOUNTER 2024-08-14 08:02 | Outpatient (REF) | payer BC, SELFPAY ==
[2024-08-14 09:53] LABS: MANUAL DIFF FLAG NO
[2024-08-14 09:59] LABS: Basophils Absolute Auto 0.1 X10*3/uL (0.0-0.2); Basophils Percent Auto 0.5 % (0-2); Eosinophils Absolute Auto 0.2 X10*3/uL (0.0-0.4); Eosinophils Percent Auto 1.7 % (0-4); Hematocrit 44.7 % (42.0-52.0); Hemoglobin 15.2 g/dl (14.0-18.0); Imm Gran Abs Auto 0.04 X10*3/uL (0.00-0.03); Imm Gran Pct Auto 0.3 % (0.0-0.4); Lymphocytes Absolute Auto 2.1 X10*3/uL (1.2-4.9); Lymphocytes Percent Auto 17.7 % (20-40); Mean Corpuscular Hemoglobin 32.5 pg (27.0-33.0); Mean Corpuscular Volume 95.7 fL (80.0-98.0); Mean Platelet Volume 10.1 fL (9.4-12.4); Monocytes Absolute Auto 1.1 X10*3/uL (0.1-1.2); Monocytes Percent Auto 9.1 % (2-11); Neutrophils Absolute Auto 8.5 x10*3/uL (2.0-8.3); Neutrophils Percent Auto 70.7 % (45-73); Platelet Count 301 X10*3/uL (160-400); Red Blood Count 4.67 X10*6/uL (4.60-5.80); Red Cell Distribution Width 12.9 % (11.0-16.0)
[2024-08-14 10:16] LABS: Alanine Aminotransferase 22 U/L (0-40); Albumin Level 4.6 g/dL (3.5-5.0); Alkaline Phosphatase 68 U/L (39-117); Anion Gap 11 (12-20); Aspartate Amino Transferase 22 U/L (5-37); Bilirubin Direct 0.4 mg/dL (0.0-0.5); Blood Urea Nitrogen 17 mg/dL (9-16); Carbon Dioxide 26 mmol/L (22-29); Chloride 102 mmol/L (96-108); Estimated Glomerular Filt Rate > 60; Glucose Random 88 mg/dL (60-115); Lipase 12 U/L (8-78); Potassium 4.1 mmol/L (3.3-5.1); Sodium 135 mmol/L (135-145); Total Protein 8.4 g/dL (6.5-8.0)
== END 2024-08-14 08:03 | disposition home or self-care (01) ==
LOC: HO.HMGCLDS 08:02
PROVIDERS: PCP Nurse Practitioner Family; Visit Provider Physician Assistant
DX: R10.11 Right upper quadrant pain (principal); K43.9 Ventral hernia without obstruction or gangrene; Z98.890 Other specified postprocedural states
CPT/HCPCS: 36415; 80048; 80076; 81003; 83690; 85025

== ENCOUNTER 2024-08-27 10:08 | Outpatient (AMB) | payer OTHER, BC, SELFPAY ==
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
[2024-08-27 10:55] VITALS: BP 114/80; PULSE 60; O2SAT 97; BMI 23.3
== END 2024-08-27 11:15 | disposition home or self-care (01) ==
PROVIDERS: PCP Nurse Practitioner Family; Visit Provider Physician Assistant
DX: S13.4XXA Sprain of ligaments of cervical spine, initial encounter (principal); V89.2XXA Person injured in unspecified motor-vehicle accident, traffic, initial encounter

== ENCOUNTER → 2024-08-27 10:08 | Outpatient (BNVA) | payer OTHER, BC, SELFPAY | PROVIDERS: PCP Nurse Practitioner Family ==

== ENCOUNTER 2024-12-30 14:22 | Outpatient (AMB) | payer BC, SELFPAY ==
[2024-12-30 14:36] VITALS: BP 106/62; PULSE 68; TEMP 36.8; O2SAT 97; BMI 23.1
--- NOTE | 2024-12-30 14:36 | MHC.OFFWIV ---
Intake Vital Signs 12/30/24 14:36 Height 5 ft 11 in Weight 165 lb 8 oz BMI 23.1 BP 106/62 Blood Pressure Location Lt brachial Position Sitting Pulse 68 Pulse Source Pulse Oximeter Temp 98.3 F Temp Source Oral Pulse Oximetry (%) 97 Oxygen Delivery Method Room Air Intake Visit Reasons: EP-?sinus infection Intake Note: patient present with headw-guerda and lyon=ins pressure times 2 days Patient Tobacco Use Status: Current everyday Tobacco user Allergies Cephalosporins (CEPHALOSPORINS) Allergy (Unknown, Verified 12/30/24 14:41) ANAPHYLACTIC REACTION Penicillins (PENICILLINS) Allergy (Unknown, Verified 12/30/24 14:41) ANAPHYLAXIS bupropion (From Wellbutrin SR) Adverse Reaction (Severe, Verified 12/30/24 14:41) Agitated Cephalosporin Allergy (Unknown, Uncoded 08/27/24 10:56) Anaphylaxis Penicillin Allergy (Unknown, Uncoded 08/27/24 10:56) Anaphylaxis HPI HPI Comments History of Present Illness Details History of Present Illness - The patient is a 39-year-old male presenting with symptoms suggestive of sinusitis. - Symptoms began yesterday with throbbing pain in the sinus region, exacerbated by bending down and relieved by standing up. - The patient has not been tested for allergies but suspects seasonal allergies as a contributing factor. - Has no current symptoms of cough or green nasal discharge. - Denies frequent sinus infections and has not been swimming recently. - She denies fever, chills, RAMOS, CP, SOB, abd pain, n/v/d, dizziness, or weakness. - Has no sick contacts. He denies recent travel. - He denies ear pain, sore throat, or post nasal drip. Physical Exam General: Cooperative, healthy appearing, comfortable, no acute distress and well developed Head: Normal to inspection Ears: Hearing grossly normal bilaterally. No tragus or mastoid tenderness noted. Auditory canals clear bilaterally. TM's normal, not bulging. No fluid noted. Nose: Normal external nose present. Moist mucosa. Turbinates normal bilaterally, not boggy. Face and sinus: Tenderness to palpation of the frontal and maxillary sinuses bilaterally. Neck: Normal visual inspection and Yes full ROM. No lymphadenopathy noted. Respiratory: Normal respiratory effort and able to speak in complete sentences. Clear to auscultation bilaterally Cardiovascular: Regular rate and rhythm. Normal S1 and S2 GI: Normal to inspection. Soft to palpation and nontender, nondistended. No guarding noted. Skin: No rashes or lesions noted Patient was informed and verbally consented to the use of an ambient scribe for clinic note documentation during this visit. [facility] Medical History GERD (gastroesophageal reflux disease) ADD (attention deficit disorder) Parapharyngeal abscess Alcohol intoxication Surgical History Ventral hernia (05/10/24) Family History Other Substance use disorder Social History [facility]: [facility] Are you a primary veterinarian laboratory animal care to a significant other at home: No Do you presently have visiting nurse or other home services: No Patient Tobacco Use Status: Current everyday Tobacco user Tobacco use type: Cigarette Cigarette Packs Per Day: 0.5 Cigarettes Per Day: 12 Years Smoked: 15 years e-Cigarette/Vaping Use: Never Used Second Hand Smoke Exposure: No Substance Use Type: Marijuana Current occupational status: employed Cognitive needs: No Hearing needs: No Vision needs: No Review of Systems Const All systems reviewed & are unremarkable except as noted in HPI and below Physical Exam Vital Signs: Last Vital Signs Temp 98.3 F 12/30/24 14:36 Pulse 68 12/30/24 14:36 BP 106/62 12/30/24 14:36 Pulse Ox 97 12/30/24 14:36 Oxygen Delivery Method Room Air 12/30/24 14:36 BMI result Body Mass Index 23.1 Assessment & Plan Assessment & Plan (1) Sinus pain: Code(s): J34.89 - Other specified disorders of nose and nasal sinuses Plan Most likely allergic rhintis vs sinusitis vs URI vs viral illness Plan - Prescribe a decongestant and nasal spray to alleviate sinus pressure. - Doxycycline BID for 7 days - Recommend steam showers to help clear nasal passages. - Advise the use of Tylenol or Motrin for pain management. Medications: New doxycycline hyclate 100 mg PO BID 14 tabs 0RF 7 days fluticasone propionate 50 mcg/actuation administer into each nostril 1 spray intranasal Q12H 16 grams 0RF cetirizine-pseudoephedrine 5-120 mg ER 1 tab PO BID 14 tabs 0RF 7 days Coding Level of Care Code Est Pt Level 3 (30536) Diagnoses Sinus pain J34.89
== END 2024-12-30 15:43 | disposition home or self-care (01) ==
PROVIDERS: PCP Nurse Practitioner Family; Visit Provider Physician Assistant Medical
DX: J34.89 Other specified disorders of nose and nasal sinuses (principal)

== ENCOUNTER → 2024-12-30 14:22 | Outpatient (BNVA) | payer BC, OTHER, SELFPAY | PROVIDERS: PCP Nurse Practitioner Family; Visit Provider Physician Assistant Medical | DX: Z13.89 Encounter for screening for other disorder (principal) ==

== ENCOUNTER 2025-02-18 12:44 | Outpatient (AMB) | payer BC, OTHER, SELFPAY ==
[2025-02-18 12:50] VITALS: BP 118/70; PULSE 112; O2SAT 98; BMI 22.3
--- NOTE | 2025-02-18 12:50 | MHC.PC.OV ---
Vital Signs 02/18/25 12:50 02/18/25 13:31 Height 5 ft 11 in Weight 160 lb BMI 22.3 BP 118/70 Blood Pressure Location Rt brachial Position Sitting Pulse 112 H 95 Pulse Source Pulse Oximeter Pulse Oximetry (%) 98 Oxygen Delivery Method Room Air Intake Visit Reasons: PE Allergies Cephalosporins (CEPHALOSPORINS) Allergy (Unknown, Verified 02/18/25 13:15) ANAPHYLACTIC REACTION Penicillins (PENICILLINS) Allergy (Unknown, Verified 02/18/25 13:15) ANAPHYLAXIS bupropion (From Wellbutrin SR) Adverse Reaction (Severe, Verified 02/18/25 13:15) Agitated Cephalosporin Allergy (Unknown, Uncoded 02/18/25 13:15) Anaphylaxis Penicillin Allergy (Unknown, Uncoded 02/18/25 13:15) Anaphylaxis Medication List - Last Reconciled 02/18/25 by GOMEZ Aguilar-EFRAIN dextroamphetamine-amphetamine 10 mg ER 1 cap PO QAM fluticasone propionate 50 mcg/actuation 1 spray intranasal Q12H Tobacco use date assessed: 02/18/25 Dental Screening Dental Screen Date: 02/18/25 Did you have a dental visit in the last 12 months?: Yes Did you have a dental problem in the last 6 months where you did not have access to dental care?: No Was dental information given to patient?: Patient has dentist HPI PE HPI Details History of Present Illness The patient is a 39-year-old male presenting for a physical exam. He has been experiencing significant personal stress due to relationship issues with his char, who is partially moving out, and they have two children together. This situation has contributed to feelings of depression, although he denies any suicidal or homicidal ideation. He is currently under the care of a therapist and a psychiatrist, which indicates ongoing mental health support. He has a history of severe Attention Deficit Hyperactivity Disorder (ADD) and is on a stimulant medication, which he reports has significantly improved his symptoms. He is focusing on his children and reports that his priorities are well-aligned. The patient has a history of tobacco use, which is a concern for his overall health. He denies any current alcohol use and reports no chest pain, dyspnea, abdominal pain, hematochezia, constipation, or diarrhea. Health Maintenance Social History - Family status: Engaged with two children - Substance use: Tobacco use, no current alcohol use Review of Systems - Psychiatric: Reports depression, denies suicidal or homicidal ideation - Respiratory: Denies dyspnea - Cardiovascular: Denies chest pain - Gastrointestinal: Denies abdominal pain, hematochezia, constipation, diarrhea Physical Exam General: Cooperative, healthy appearing, comfortable, no acute distress and well developed Orientation: Patient oriented x3 Limitations: No limitations Head: Normal to inspection Ears: Hearing grossly normal bilaterally Nose: Normal external nose present Face and sinus: Normal facial exam Eyes: Appearance normal, both eyes and all related structures Neck: Normal visual inspection and Yes full ROM Respiratory: Normal respiratory effort and able to speak in complete sentences. Clear to auscultation bilaterally Cardiovascular: Regular rate and rhythm. Normal S1 and S2 GI: Normal to inspection. Soft to palpation and nontender : testicles without masses/no hernias. Condyloma noted to diatal dorsal aspect of penis Skin: No rashes or lesions noted Neuro: Patient oriented x3 Extremities: Normal to inspection Results Plan The patient will continue with his current mental health support, including therapy and psychiatric care, to manage his depression and ADHD. He is advised to maintain focus on his children and personal well-being, which he has been prioritizing effectively. A follow-up appointment is scheduled in six months to monitor his progress and overall health status. He is encouraged to quit smoking to improve his health outcomes. Patient Instructions - Continue attending therapy and psychiatric appointments. - Focus on personal well-being and family priorities. - Schedule and attend follow-up appointment in six months. - Work on quitting smoking. [facility] Medical History GERD (gastroesophageal reflux disease) ADD (attention deficit disorder) Parapharyngeal abscess Alcohol intoxication Surgical History Ventral hernia (05/10/24) Family History Other Substance use disorder Social History Housing: Condominium Are you a primary child day care center worker to a significant other at home: No Do you presently have visiting nurse or other home services: No Patient Tobacco Use Status: Current everyday Tobacco user Tobacco use type: Cigarette Cigarette Packs Per Day: 0.5 Cigarettes Per Day: 12 Years Smoked: 15 years e-Cigarette/Vaping Use: Never Used Second Hand Smoke Exposure: No Substance Use Type: Marijuana Current occupational status: employed Cognitive needs: No Hearing needs: No Vision needs: No Questionnaire PHQ-9 Over the last 2 weeks, how often have you been bothered by any of the following problems? 1. Little interest or pleasure in doing things: several days 2. Feeling down, depressed, or hopeless: several days 3. Trouble falling or staying asleep, or sleeping too much: several days 4. Feeling tired or having little energy: not at all 5. Poor appetite or overeating: not at all 6. Feeling bad about yourself - or that you are a failure or have let yourself or your family down: several days 7. Trouble concentrating on things, such as reading the newspaper or watching television: not at all 8. Moving or speaking so slowly that other people could have noticed. Or the opposite - being so fidgety or restless that you have been moving around a lot more than usual: not at all 9. Thoughts that you would be better off or of hurting yourself in some way: not at all Total score: 4 Depression Screening Interpretation: Negative Depression Screening Done: Yes 68158 - PHQ-9 Billing: Yes Source: Developed by Drs. Ky Rowe, Laurie Aranda, Jean-Claude Hernandes and colleagues, with an educational cornelius from [employer]. Thrive Questionnaire Date Thrive assessed: 02/18/25 I am a: Patient What is your living situation today?: I have a steady place to live Within the past 12 months, did the food you bought not last and you didn't have the money to get more?: Never true Within the past 12 months, did you worry whether your food would run out before you got money to buy more?: Never true Do you have trouble paying for medicines?: No Do you have trouble getting transportation to medical appointments?: No Do you have trouble paying your heating and electricity bill?: No Do you have trouble taking care of your child, family member or friend?: No Do you have trouble with day-to-day activities such as bathing, preparing meals, shopping, managing finances, etc.?: Yes Are you currently unemployed and looking for a job?: No Are you interested in more education?: Yes Please select the resources that you would like help with: None Currently or been in a relationship where the following occur: I choose not to answer THRIVE Score: 0 AUDIT C Alcohol Use Questionnaire (AUDIT-C) 1. How often do you have a drink containing alcohol?: Never 3. How often do you have six or more drinks on one occasion?: Never Total Score: 0 Score Reviewed/Action Taken: Yes FRANCESCA-7 AMB Questionnaire FRANCESCA-7 Date FRANCESCA - 7 assessed: 02/18/25 Feeling nervous, anxious, or on edge: 1 = Several days Not being able to stop or control worryin = Several days Worrying too much about different things: 1 = Several days Trouble relaxin = Several days Being so restless that it is hard to sit still: 1 = Several days Becoming easily annoyed or irritable: 1 = Several days Feeling afraid as if something awful might happen: 0 = Not at all Total FRANCESCA-7 score (0-4 normal; 5-9 mild; 10-14 moderate; 15-21 severe): 6 Source: Developed by Drs. Ky Rowe, Laurie Aranda, Jean-Claude Hernandes and colleagues, with an educational cornelius from [employer]. FRANCESCA-7 Assessment Billing FRANCESCA-7 Assessment Tool: FRANCESCA-7 Assessment 60417 Physical exam (Primary Care) Vital Signs: Last Vital Signs Pulse 95 02/18/25 13:31 BP 118/70 02/18/25 12:50 Pulse Ox 98 02/18/25 12:50 Oxygen Delivery Method Room Air 02/18/25 12:50 BMI result Body Mass Index 22.3 Tobacco/Smoking Status: Tobacco use Status Tobacco use date assessed 02/18/25 02/18/25 12:54 Patient Tobacco Use Status Current everyday Tobacco 02/18/25 12:54 Tobacco use type Cigarette 02/18/25 12:54 e-Cigarette/Vaping Use Never Used 02/18/25 12:54 PHQ-9: PHQ-9 Score PHQ-9: Total score 4 02/18/25 13:33 Depression Screening Interpretation: Negative Thrive Assessment: Date of Thrive Assessment Date Thrive assessed 02/18/25 02/18/25 12:54 Currently or been in a relationship where the following occur: I choose not to answer Coding Level of Care Code Est Pt Prev Care 40-64y(64873) Diagnoses Genital warts A63.0 Condyloma A63.0 Physical exam Z00.00 ADD (attention deficit disorder) F98.8 Additional Codes FRANCESCA-7 Assessment Billing - FRANCESCA-7 Assessment Tool: FRANCESCA-7 Assessment 89304 ([id number]) PHQ-9 - 65932 - PHQ-9 Billing: Yes ([id number]) Assessment & Plan Assessment & Plan (1) Genital warts: Code(s): A63.0 - Anogenital (venereal) warts Category: Medical (2) Condyloma: Code(s): A63.0 - Anogenital (venereal) warts Category: Medical (3) Physical exam: Code(s): Z00.00 - Encounter for general adult medical examination without abnormal findings Category: Medical (4) ADD (attention deficit disorder): Code(s): F98.8 - Other specified behavioral and emotional disorders with onset usually occurring in childhood and adolescence Category: Medical Plan . Orders: Orders Complete Blood Count Auto Diff Today Z00.00 - Encounter for general adult medical examination without abnormal findings TSH reflex Free T4 Today Z00.00 - Encounter for general adult medical examination without abnormal findings Comprehensive [place]. Panel Fast Today Z00.00 - Encounter for general adult medical examination without abnormal findings UA CC w/rflx Micro + Cult Today Z00.00 - Encounter for general adult medical examination without abnormal findings Lipid Panel Today Z00.00 - Encounter for general adult medical examination without abnormal findings Referrals Urology Referral A63.0 - Anogenital (venereal) warts
[2025-02-18 13:31] VITALS: PULSE 95
== END 2025-02-18 13:48 | disposition home or self-care (01) ==
LOC: HO.HMCC 12:45
PROVIDERS: PCP Nurse Practitioner Family; Visit Provider Nurse Practitioner Family
DX: A63.0 Anogenital (venereal) warts (principal); Z00.00 Encounter for general adult medical examination without abnormal findings; F98.8 Other specified behavioral and emotional disorders with onset usually occurring in childhood and adolescence

== ENCOUNTER → 2025-02-18 12:44 | Outpatient (BNVA) | payer BC, SELFPAY | PROVIDERS: PCP Nurse Practitioner Family; Visit Provider Nurse Practitioner Family | DX: Z00.00 Encounter for general adult medical examination without abnormal findings (principal); A63.0 Anogenital (venereal) warts; F98.8 Other specified behavioral and emotional disorders with onset usually occurring in childhood and adolescence; Z79.899 Other long term (current) drug therapy; Z87.891 Personal history of nicotine dependence | CPT/HCPCS: 96127 ==

== ENCOUNTER 2025-02-22 09:37 | Outpatient (REF) | payer BC, SELFPAY ==
[2025-02-22 11:29] LABS: MANUAL DIFF FLAG NO
[2025-02-22 11:31] LABS: Appearance Urine Clear; Glucose Urine UA Negative (Negative); Hematocrit 46.2 % (42.0-52.0); Hemoglobin 15.9 g/dl (14.0-18.0); Imm Gran Abs Auto 0.01 X10*3/uL (0.00-0.03); Imm Gran Pct Auto 0.2 % (0.0-0.4); Lymphocytes Absolute Auto 2.1 X10*3/uL (1.2-4.9); Mean Corpuscular HGB Conc 34.4 g/dl (31.0-36.0); Mean Corpuscular Hemoglobin 33.8 pg (27.0-33.0); Mean Corpuscular Volume 98.1 fL (80.0-98.0); NRBC Abs Auto 0.000 X10*3/uL (0.0-0.012); NRBC Pct Auto 0.0 /100WBC (0.0-0.2); PH 6.0 (5.0-9.0); Platelet Count 259 X10*3/uL (160-400); Red Blood Count 4.71 X10*6/uL (4.60-5.80); Specific Gravity - Urine 1.025 (1.005-1.025); White Blood Count 6.3 X10*3/uL (4.8-10.8)
[2025-02-22 11:51] LABS: Alanine Aminotransferase 29 U/L (0-40); Albumin Level 4.2 g/dL (3.5-5.0); Alkaline Phosphatase 73 U/L (39-117); Anion Gap 10 (12-20); Aspartate Amino Transferase 33 U/L (5-37); Blood Urea Nitrogen 26 mg/dL (9-16); Calcium 8.7 mg/dL (8.4-10.2); Carbon Dioxide 28 mmol/L (22-29); Chloride 107 mmol/L (96-108); Cholesterol 138 mg/dL (<200); Estimated Glomerular Filt Rate > 60; HDL Cholesterol 48 mg/dL (>40); Potassium 4.1 mmol/L (3.3-5.1); Sodium 141 mmol/L (135-145); Total Protein 7.1 g/dL (6.5-8.0); Triglycerides 45 mg/dL (<150)
== END 2025-02-22 09:38 | disposition home or self-care (01) ==
LOC: HO.HMGCLDS 09:37
PROVIDERS: PCP Nurse Practitioner Family; Visit Provider Nurse Practitioner Family
DX: Z00.00 Encounter for general adult medical examination without abnormal findings (principal); Z13.6 Encounter for screening for cardiovascular disorders
CPT/HCPCS: 36415; 80053; 80061; 81003; 84443; 85025

== ENCOUNTER 2025-04-03 11:25 | Outpatient (AMB) | payer BC, SELFPAY ==
--- NOTE | 2025-04-03 11:35 | AM.OFFWIN_ITS ---
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 Accompanied by: Self / Same As Patient Allergies Cephalosporins (CEPHALOSPORINS) Allergy (Unknown, Verified 04/03/25 11:36) ANAPHYLACTIC REACTION Penicillins (PENICILLINS) Allergy (Unknown, Verified 04/03/25 11:36) ANAPHYLAXIS bupropion (From Wellbutrin SR) Adverse Reaction (Severe, Verified 04/03/25 11:36) Agitated Cephalosporin Allergy (Unknown, Uncoded 02/18/25 13:15) Anaphylaxis Penicillin Allergy (Unknown, Uncoded 02/18/25 13:15) Anaphylaxis HPI HPI Comments History of Present Illness Details History of Present Illness - The patient is a 39-year-old male pres enting with swelling and tenderness in the left arch of the foot. - The swelling began last night and was associated with tenderness. - The patient has experienced similar sy mptoms in the past, which were diagnosed as cellulitis and improved with antibiotics. - The patient denies any recent trauma o r puncture wounds to the foot but mentions increased weight during calf raises at the gym. - The patient reports extreme discomfort and describes the sensation as if the sock was rolling up while walking. - The patient works at [employer] constant walking, and denies fever, chills, numbness, or tingling. - The patient has a known allergy to pen icillins and cephalosporins. - He has no joint pain, numbness, tingli ng, ankle pain, abrasions, fever, chills, calf pain or edema. Physical Exam General: Cooperative, healthy appearing, comfortable, no acute distress and well developed Orientation: Patient oriented x3 Limitations: Limited due to extreme discomfort in the left foot Respiratory: Normal respiratory effort and able to speak in complete sentences. Skin: Redness noted on the left lateral foot and on the plantar aspect. No rashes or lesions noted. No streaking noted. Neuro: Patient oriented x3, gait normal. Sensation is intact. Extremities: FROM of the left ankle and digits on the left foot. Tenderness to the left lateral foot along the 5th metatarsal. Ambulates with a steady gait. Strength is 5/5 on the LE. Patient was informed and verbally consented to the use of an ambient scribe for clinic note documentation during this visit. [facility] Medical History GERD (gastroesophageal reflux disease) ADD (attention deficit disorder) Parapharyngeal abscess Alcohol intoxication Surgical History Ventral hernia (05/10/24) Family History Other Substance use disorder Social History Housing: [facility] Are you a primary restorative care technician to a significant other at home: No Do you presently have visiting nurse or other home services: No Patient Tobacco Use Status: Current everyday Tobacco user Tobacco use type: Cigarette Cigarette Packs Per Day: 0.5 Cigarettes Per Day: 12 Years Smoked: 15 years e-Cigarette/Vaping Use: Never Used Second Hand Smoke Exposure: No Substance Use Type: Marijuana Current occupational status: employed Cognitive needs: No Hearing needs: No Vision needs: No Review of Systems Const All systems reviewed & are unremarkable except as noted in HPI and below Physical Exam Vital Signs: Last Vital Signs Temp 97.9 F 04/03/25 11:37 Pulse 69 04/03/25 11:37 Resp 16 04/03/25 11:37 BP 126/74 04/03/25 11:37 Pulse Ox 95 04/03/25 11:37 Oxygen Delivery Method Room Air 04/03/25 11:37 Assessment & Plan Assessment & Plan (1) Cellulitis of foot: Code(s): L03.119 - Cellulitis of unspecified part of limb Plan Most likely cellulitis vs plantar fasciitis Plan - Prescribed doxycycline due to allergies to penicillins and cephalosporins. - Advised to monitor for signs of worsening infection, such as increased redness, streaking, or fever. - Recommended elevation, icing, and use of Tylenol or Motrin for pain management. - Suggested avoiding weight-bearing activities for 24 hours to allow antibiotics to take effect - follow up with PCP Medications: New doxycycline hyclate 100 mg PO BID 14 tabs 0RF Coding Level of Care Code Est Pt Level 3 (24148) Diagnoses Cellulitis of foot L03.119
[2025-04-03 11:37] VITALS: BP 126/74; PULSE 69; RESP 16; TEMP 36.6; O2SAT 95
== END 2025-04-03 12:03 | disposition home or self-care (01) ==
PROVIDERS: PCP Nurse Practitioner Family; Visit Provider Physician Assistant Medical
DX: L03.119 Cellulitis of unspecified part of limb (principal)

== ENCOUNTER 2025-04-28 08:49 | Outpatient (AMB) | payer BC, SELFPAY ==
--- NOTE | 2025-04-28 09:01 | A.OFFVIS_ITS ---
Intake Visit Reasons: Genital Warts Intake Note: New patient presents today for initial visit for genital warts Urology Medication:None Blood Thinner:None Antibiotic Allergies:None Allergies Cephalosporins (CEPHALOSPORINS) Allergy (Unknown, Verified 04/28/25 09:01) ANAPHYLACTIC REACTION Penicillins (PENICILLINS) Allergy (Unknown, Verified 04/28/25 09:01) ANAPHYLAXIS bupropion (From Wellbutrin SR) Adverse Reaction (Severe, Verified 04/28/25 09:01) Agitated Cephalosporin Allergy (Unknown, Uncoded 02/18/25 13:15) Anaphylaxis Penicillin Allergy (Unknown, Uncoded 02/18/25 13:15) Anaphylaxis HPI Comments Details: Nader presents as a new patient for genital warts. [facility] Medical History GERD (gastroesophageal reflux disease) ADD (attention deficit disorder) Parapharyngeal abscess Alcohol intoxication Surgical History Ventral hernia (05/10/24) Family History Other Substance use disorder Social History Housing: Condominium Are you a primary technical healthcare consultant to a significant other at home: No Do you presently have visiting nurse or other home services: No Patient Tobacco Use Status: Current everyday Tobacco user Tobacco use type: Cigarette Cigarette Packs Per Day: 0.5 Cigarettes Per Day: 12 Years Smoked: 15 years e-Cigarette/Vaping Use: Never Used Second Hand Smoke Exposure: No Substance Use Type: Marijuana Current occupational status: employed Cognitive needs: No Hearing needs: No Vision needs: No Results AMB Urinalysis, Automated UA Leukoctes 0 Gissel/uL Last Edit by Gayathri Johnson on 04/28/25 16:51 UA Nitrite Negative Last Edit by Gayathri Johnson on 04/28/25 16:51 UA Urobilinogen 0.2 mg/dL Last Edit by Gayathri Johnson on 04/28/25 16:51 UA Protein 0 mg/dL Last Edit by Gayathri Johnson on 04/28/25 16:51 UA pH 6.0 Last Edit by Gayathri Johnson on 04/28/25 16:51 UA Blood 0 Edgardo/uL Last Edit by Gayathri Johnson on 04/28/25 16:51 UA Specific [place] 1.015 Last Edit by Gayathri Johnson on 04/28/25 16:51 UA Ketone Negative Last Edit by Gayathri Johnson on 04/28/25 16:51 UA Bilirubin 0 mg/dL Last Edit by Gayathri Johnson on 04/28/25 16:51 UA Glucose 0 mg/dL Last Edit by Gayathri Johnson on 04/28/25 16:51 Assessment & Plan Assessment & Plan Orders: Orders AMB Urinalysis Automated Today R10.11 - Right upper quadrant pain Coding
== END 2025-04-28 10:22 | disposition home or self-care (01) ==
LOC: HO.HUSH 08:49
PROVIDERS: PCP Nurse Practitioner Family; Visit Provider Urology
DX: R10.11 Right upper quadrant pain (principal)

== ENCOUNTER → 2025-04-28 08:49 | Outpatient (BNVA) | payer BC, SELFPAY | PROVIDERS: PCP Nurse Practitioner Family; Visit Provider Urology | DX: A63.0 Anogenital (venereal) warts (principal); R10.11 Right upper quadrant pain | CPT/HCPCS: 81003 ==

== ENCOUNTER 2025-06-20 08:43 | Outpatient (AMB) | payer BC, SELFPAY ==
[2025-06-20 08:55] VITALS: BP 120/76; PULSE 86; TEMP 36.6; O2SAT 98; BMI 23.4
--- NOTE | 2025-06-20 08:55 | MHC.OFFWIV ---
Intake Vital Signs 06/20/25 08:55 Height 5 ft 11 in Weight 168 lb BMI 23.4 BP 120/76 Blood Pressure Location Rt brachial Position Sitting Pulse 86 Pulse Source Pulse Oximeter Temp 98 F Temp Source Oral Pulse Oximetry (%) 98 Oxygen Delivery Method Room Air Intake Visit Reasons: EP-mouth swelling & pain Intake Note: Patient presents c/o right lower jaw pain due to cracked teeth (in the process of getting work done). Patient Tobacco Use Status: Current everyday Tobacco user Allergies Cephalosporins (CEPHALOSPORINS) Allergy (Unknown, Verified 06/20/25 08:58) ANAPHYLACTIC REACTION Penicillins (PENICILLINS) Allergy (Unknown, Verified 06/20/25 08:58) ANAPHYLAXIS bupropion (From Wellbutrin SR) Adverse Reaction (Severe, Verified 06/20/25 08:58) Agitated Do you need a note to return to daycare/school/sports/work: Yes HPI HPI Comments History of Present Illness Details This is a 39-year-old male presenting for evaluation of right lower dental pain. Patient states he has a chronic avulsion of a molar tooth for which he is having dental intervention in the coming weeks. Patient states for the past 2 days he has had worsening pain in his right lower jaw. He denies having any fevers or chills and has been taking ibuprofen only without relief of his discomfort. Patient denies having any trismus, difficulty swallowing or managing secretions. [facility] Medical History GERD (gastroesophageal reflux disease) ADD (attention deficit disorder) Parapharyngeal abscess Alcohol intoxication Surgical History Ventral hernia (05/10/24) Family History Other Substance use disorder Social History Housing: Condominium Are you a primary ostomy care nurse to a significant other at home: No Do you presently have visiting nurse or other home services: No Patient Tobacco Use Status: Current everyday Tobacco user Tobacco use type: Cigarette Cigarette Packs Per Day: 0.5 Cigarettes Per Day: 12 Years Smoked: 15 years e-Cigarette/Vaping Use: Never Used Second Hand Smoke Exposure: No Substance Use Type: Marijuana Current occupational status: employed Cognitive needs: No Hearing needs: No Vision needs: No Review of Systems Const All systems reviewed & are unremarkable except as noted in HPI and below Denies body aches, Denies chills, Denies fatigue and Denies fever(s) Eyes Reports no additional complaints ENT Reports no additional complaints, Reports dental pain (right lower), Reports facial pain, Denies neck pain, Denies sore throat and Denies throat swelling Musc Denies neck pain Skin/Breast Reports system reviewed and no additional complaints, except as documented Neuro Reports no additional complaints Endo Reports no additional complaints and Denies fatigue Jaxon/Lymph Reports no additional complaints Aller/Immun Denies throat swelling Physical Exam Vital Signs: Last Vital Signs Temp 98 F 06/20/25 08:55 Pulse 86 06/20/25 08:55 BP 120/76 06/20/25 08:55 Pulse Ox 98 06/20/25 08:55 Oxygen Delivery Method Room Air 06/20/25 08:55 BMI result Body Mass Index 23.4 Patient is afebrile. Const General: cooperative, healthy appearing, comfortable, no acute distress, well developed, alert, awake and Physically active; No acute distress or lethargic Nutritional Appearance: average body habitus Orientation/consciousness: patient oriented x3 and No lethargic Limitations: no limitations HEENT Head: Yes normal to inspection and Yes normocephalic Ears: hearing grossly normal bilaterally, external ears normal, TM's normal bilaterally and EAC's normal General nose exam: Normal external nose present Face and sinus: No erythema, No edema and Yes other (Mild tenderness to palpation of the right mandible) Mouth: Normal oral and palatal mucosa present, lip normal, tongue normal, moist mucous membranes and No mouth trauma Teeth and gingiva: abnormal dentition (avulsed right lower dentition with necrosis; adjacent gingivae non.tender), gingiva normal, normal teeth and gingiva and poor dentition Throat: Yes posterior oropharynx normal and No postnasal drainage Eyes General: appearance normal, both eyes and all related structures Neck Lymphatic: no lymphadenopathy noted Skin Other: No erythema or edema noted of the right lower facial structures Neuro General: patient oriented x3 Psych Appearance: grossly normal Mental Status: mental status grossly normal Insight: Good insight present (Psych) Judgement: Good judgement present (Psych) Assessment & Plan Assessment & Plan (1) Pain, dental: Comment: Patient has a chronic dental avulsion that may be evolving into an abscess. Patient will be discharged home with antibiotic therapy and medication for his pain. Patient is penicillin allergic and states that he has been ?immune? to clindamycin. Code(s): K08.89 - Other specified disorders of teeth and supporting structures Plan: Clarithromycin b.i.d. x 10 days, ibuprofen 600 mg TID PRN pain. Patient is to follow up with his dentist next week. Medications: New clarithromycin 500 mg PO Q12H 20 tabs 0RF ibuprofen 600 mg PO TID PRN 30 tabs 0RF pain Coding Level of Care Code Est Pt Level 3 (26687) Diagnoses Pain, dental K08.89 Time Spent (min) 20
== END 2025-06-20 09:33 | disposition home or self-care (01) ==
PROVIDERS: PCP Nurse Practitioner Family; Visit Provider Physician Assistant
DX: K08.89 Other specified disorders of teeth and supporting structures (principal)